=== PATIENT | female | born 1975 | race Caucasian/White ===

== ENCOUNTER 2018-05-27 14:11 | Emergency (ER) | payer OTHER ==
[2018-05-27] MEDS ORDERED: ONDANSETRON 4 MG/2 ML VIAL ONE (15:06)
[2018-05-27] MEDS ORDERED: NA CHLORIDE 0.9% 1,000 ML ONE (15:07)
[2018-05-27 15:16] LABS: Absolute Lymphocytes (CBC) 2.5 K/uL (0.7-4.9); Absolute Monocytes 0.8 K/uL (0.1-1.3); Absolute Neutrophil 11.4 K/uL (1.8-8.0); Basophils % 0.7 % (0-1.3); Eosinophils % 0.7 % (0-4.4); Hematocrit 43.3 % (36.0-45.0); Lymphocytes % 16.8 % (15.3-44.8); Monocytes % 5.1 % (3.3-12.3); RBC Red Blood Cell Count 4.84 M/uL (3.86-4.86)
[2018-05-27] MEDS ORDERED: KETOROLAC 30 MG/ML INJ ONE (15:18)
[2018-05-27 15:42] LABS: Bilirubin Direct 0.1 mg/dL (0-0.2); Bilirubin Total 0.4 mg/dL (0.2-1.0); Potassium 4.1 mmol/L (3.5-5.1); Protein, Total 8.3 g/dL (6.4-8.2)
[2018-05-27 16:32] LABS: Urine Bacteria 20-50 /HPF (<20); Urine Culture Reflex Order REFLEXED; Urine Mucus 3+ /HPF (NONE SEEN); Urine RBC 20-50 /HPF (NONE SEEN)
--- NOTE | 2018-05-27 16:43 | RAD REPORT ---
EXAM DESCRIPTION: CT - Stone Protocol - 05/27/2018 4:18 pm CLINICAL HISTORY: Right-sided abdominal pain and flank pain COMPARISON: None. TECHNIQUE: Axial 5 mm thick images were obtained without oral or IV contrast. The [id number] span s the entirety of the system including uppermost abdomen and lung bases. All CT scans are performed using dose optimization technique as appropriate and may include automated exposure control or mA/KV adjustment according to patient size. FINDINGS: Mild to moderate right-sided hydronephrosis of the pelvis and calices noted secondary to a 6 mm proximal ureter calculus. On a KUB projection this is right side L3-4 disc level. No other obst ructing or nonobstructing calculi on the right. No left-sided hydronephrosis. No suspicious renal mas ses. Isodense masses and pyelonephritis are not excluded on a stone protocol CT scan. Urinary bladder is fully contracted. No bladder calculus. Uterus is absent. Ovaries are absent or atrophic. No adnex al mass. No significant adrenal finding. Imaged portions of the liver, spleen and pancreas show no suspicious findings on non-contrast imaging . Cholecystectomy clips are present. No biliary tree dilatation. No suspicious bowel findings. Cecum is low lying along the pelvis for. No appendicitis findings. No hernia, mass or bulky lymphadenopathy noted. No free air, free fluid or inflammatory stranding. No significant bony abnormality. IMPRESSION: Mild to moderate hydronephrosis of the pelvis and calices on the right secondary to a 6 mm proximal right ureter calculus. On KUB projection the stone is at the level of the L3-4 disc. Isodense masses and pyelonephritis are not excluded on stone protocol technique.
[2018-05-27 16:52] LABS: Urine Blood 2+ (NEG); Urine Glucose NEGATIVE (NEG); Urine Specific Gravity >1.030 (1.005-1.030)
[2018-05-27 16:53] LABS: Urine Protein 2+ (NEG); Urine pH 5.5 (5.0-7.0)
[2018-05-27] MEDS ORDERED: CIPROFLOXACIN HCL 500 MG TAB ONE (16:59)
--- NOTE | 2018-05-27 16:59 | EDPHYS ---
Physician Documentation [facility] Name: Samira Freeman Age: 43 yrs Sex: Female : 1975 Arrival Date: 05/27/2018 Time: 14:12 Bed 30 Private MD: ED Physician Wili Camacho HPI: 05/27 15:30 This 43 yrs old Female presents to ER via Ambulatory with complaints of Back pm1 Pain, Vomiting. 15:30 The patient presents with pain that is acute, with no known mechanism of injury. The pm1 symptoms are located in the right flank. Onset: The symptoms/episode began/occurred today. The pain radiates to the right groin. Associated signs and symptoms: Pertinent positives: nausea, vomiting, Pertinent negatives: chest pain, constipation, dysuria, fever, headache, numbness, tingling. The problem was sustained from unknown cause. Modifying factors: The patient symptoms are alleviated by nothing, the patient symptoms are aggravated by nothing. Severity of symptoms: in the emergency department the symptoms are actually worse. The patient has not experienced similar symptoms in the past. The patient has not recently seen a physician. Waxing and waning pain to right flank. 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 - Social history:: Smoking status: Patient/guardian denies using tobacco. - Ebola Screening: : No symptoms or risks identified at this time. ROS: 15:30 Constitutional: Negative for fever, chills, and weight loss, Eyes: Negative for injury, pm1 pain, redness, and discharge, ENT: Negative for injury, pain, and discharge, Neck: Negative for injury, pain, and swelling, Cardiovascular: Negative for chest pain, palpitations, and edema, Respiratory: Negative for shortness of breath, cough, wheezing, and pleuritic chest pain. 15:30 : Negative for injury, bleeding, discharge, and swelling, MS/Extremity: Negative for injury and deformity, Skin: Negative for injury, rash, and discoloration, Neuro: Negative for headache, weakness, numbness, tingling, and seizure. 15:30 Abdomen/GI: Positive for abdominal pain, nausea and vomiting, of the Right groin area, Negative for diarrhea. 15:30 Back: Positive for flank pain, on the right. Exam: 15:30 Constitutional: This is a well developed, well nourished patient who is awake, alert, pm1 and in no acute distress. Head/Face: Normocephalic, atraumatic. Eyes: Pupils equal round and reactive to light, extra-ocular motions intact. Lids and lashes normal. Conjunctiva and sclera are non-icteric and not injected. Cornea within normal limits. Periorbital areas with no swelling, redness, or edema. ENT: Nares patent. No nasal discharge, no septal abnormalities noted. Tympanic membranes are normal and external auditory canals are clear. Oropharynx with no redness, swelling, or masses, exudates, or evidence of obstruction, uvula midline. Mucous membranes moist. Neck: Trachea midline, no thyromegaly or masses palpated, and no cervical lymphadenopathy. Supple, full range of motion without nuchal rigidity, or vertebral point tenderness. No Meningismus. Chest/axilla: Normal chest wall appearance and motion. Nontender with no deformity. No lesions are appreciated. Cardiovascular: Regular rate and rhythm with a normal S1 and S2. No gallops, murmurs, or rubs. Normal PMI, no JVD. No pulse deficits. Respiratory: Lungs have equal breath sounds bilaterally, clear to auscultation and percussion. No rales, rhonchi or wheezes noted. No increased work of breathing, no retractions or nasal flaring. Abdomen/GI: Soft, non-tender, with normal bowel sounds. No distension or tympany. No guarding or rebound. No evidence of tenderness throughout. 15:30 Skin: Warm, dry with normal turgor. Normal color with no rashes, no lesions, and no evidence of cellulitis. MS/ Extremity: Pulses equal, no cyanosis. Neurovascular intact. Full, normal range of motion. 15:30 Back: normal spinal alignment noted, CVA tenderness, that is mild, is noted on the right, vertebral tenderness, is not appreciated. 15:30 Neuro: Orientation: is normal, Motor: is normal, moves all fours, Sensation: is normal, no obvious gross deficits. Vital Signs: 14:50 BP 95 / 81; Pulse 99; Resp 16; Temp 97.4; Pulse Ox 98% ; Pain 10/10; hb 16:30 BP 120 / 79; Pulse 83; Resp 18; Pulse Ox 100% on R/A; rv 17:21 BP 116 / 72; Pulse 82; Resp 18; Pulse Ox 100% on R/A; rv MDM: 14:58 Patient medically screened. pm1 16:42 Data reviewed: vital signs. Data interpreted: Pulse oximetry: on room air is 100 %. pm1 Interpretation: normal. 16:56 Counseling: I had a detailed discussion with the patient and/or guardian regarding: the pm1 historical points, exam findings, and any diagnostic results supporting the discharge/admit diagnosis, lab results, radiology results, the need for outpatient follow up, for definitive care, a urologist, to return to the emergency department if symptoms worsen or persist or if there are any questions or concerns that arise at home. 05/27 14:59 Order name: Hepatic Function; Complete Time: 15:59 pm1 05/27 14:59 Order name: Basic Metabolic Panel; Complete Time: 15:59 pm1 05/27 14:59 Order name: CBC with Diff pm1 05/27 14:59 Order name: Lipase; Complete Time: 15:59 pm1 05/27 15:59 Order name: Urine Microscopic Only; Complete Time: 16:38 pm1 05/27 16:02 Order name: Urine Dipstick--Ancillary (enter results); Complete Time: 17:01 em1 05/27 14:59 Order name: CT Stone Protocol; Complete Time: 16:44 pm1 05/27 16:34 Order name: Urine Culture [facility] 05/27 14:59 Order name: IV Saline Lock; Complete Time: 15:04 pm1 05/27 14:59 Order name: Labs collected and sent; Complete Time: 15:05 pm1 05/27 14:59 Order name: Urine Dipstick-Ancillary (obtain specimen); Complete Time: 16:01 pm1 Administered Medications: 15:04 Drug: Zofran 4 mg Route: IVP; Site: left forearm; ss 17:02 Follow up: Response: Marked relief of symptoms rv 15:05 Drug: NS 0.9% 1000 ml Route: IV; Rate: 1000 ml; Site: left forearm; ss 17:02 Follow up: IV Status: Completed infusion rv 15:11 Drug: TORadol 30 mg Route: IVP; Site: right antecubital; ss 17:02 Follow up: Response: Pain is decreased rv 16:50 Drug: Ciprofloxacin 500 mg Route: PO; rv 17:22 Follow up: Response: No adverse reaction rv 16:50 Drug: fentaNYL (PF) 25 mcg Route: IVP; Site: right antecubital; rv 17:22 Follow up: Response: Marked relief of symptoms; Pain is decreased rv 16:50 Drug: Flomax 0.4 mg Route: PO; rv 17:22 Follow up: Response: No adverse reaction rv Disposition: 18:36 Co-signature as Attending Physician, Wili Camacho MD. rn Disposition: 05/27/18 16:58 Discharged to Home. Impression: Calculus of ureter - right. - Condition is Stable. - Discharge Instructions: Kidney Stones, Dietary Guidelines to Help Prevent Kidney Stones. - Prescriptions for Tylenol- Codeine #3 300-30 mg Oral Tablet - take 2 tablets by ORAL route every 6 hours As needed; 20 tablet. Zofran 4 mg Oral Tablet - take 1 tablet by ORAL route every 12 hours As needed; 20 tablet. Flomax 0.4 mg Oral Capsule, Sust. Release 24 hr - take 1 capsule by ORAL route once daily 1/2 hour following the same meal each day; 10 capsule. Cipro 500 mg Oral Tablet - take 1 tablet by ORAL route every 12 hours for 7 days; 14 tablet. - Medication Reconciliation Form, Thank You Letter, Antibiotic Education, Prescription Opioid Use, Work release form form. - Follow up: Emergency Department; When: As needed; Reason: Worsening of condition. Follow up: Shane Villarreal MD; When: 2 - 3 days; Reason: Recheck today's complaints, Continuance of care, Re-evaluation by your physician. - Problem is new. - Symptoms have improved. Signatures: Dispatcher [employer] EDMS Wili Camacho MD MD rn Smirch, Shelby, RN RN ss Edgardo Koo, BACK SHOE WORKER BACK SHOE WORKER pm1 Margaret Sneed RN RN [place] RN RN rv Corrections: (The following items were deleted from the chart) 17:21 16:58 05/27/2018 16:58 Discharged to Home. Impression: Calculus of ureter - right. hb Condition is Stable. Forms are Medication Reconciliation Form, Thank You Letter, Antibiotic Education, Prescription Opioid Use. Follow up: Emergency Department; When: As needed; Reason: Worsening of condition. Follow up: Shane Villarreal; When: 2 - 3 days; Reason: Recheck today's complaints, Continuance of care, Re-evaluation by your physician. Problem is new. Symptoms have improved. pm1
--- NOTE | 2018-05-27 16:59 | ER ---
Nurse's Notes [facility] Name: Samira Freeman Age: 43 yrs Sex: Female : 1975 Arrival Date: 05/27/2018 Time: 14:12 Bed 30 Private MD: Diagnosis: Calculus of ureter-right Presentation: 05/27 14:39 Onset of symptoms was May 25, 2018. Risk Assessment: Do you want to hurt yourself hb or someone else? Patient reports no desire to harm self or others. 14:40 Transition of care: patient was not received from another setting of care. Care prior hb to arrival: None. 14:40 Method Of Arrival: Ambulatory hb 14:40 Acuity: GALINA 3 hb 14:40 Presenting complaint: Right sided abdominal pain and N/V since 1030 today. hb 16:43 Initial Sepsis Screen: Does the patient meet any 2 criteria? No. Patient's initial rv sepsis screen is negative. Does the patient have a suspected source of infection? No. Patient's initial sepsis screen is negative. 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 - Social history:: Smoking status: Patient/guardian denies using tobacco. - Ebola Screening: : No symptoms or risks identified at this time. Screenin:43 Abuse screen: Denies threats or abuse. Denies injuries from another. Nutritional rv screening: No deficits noted. Tuberculosis screening: No symptoms or risk factors identified. Fall Risk None identified. Assessment: 16:42 General: Appears in no apparent distress. uncomfortable, Behavior is calm, cooperative. rv Pain: Complains of pain in abdomen. Neuro: Level of Consciousness is awake, alert, obeys commands, Oriented to person, place, time, situation. Cardiovascular: Capillary refill < 3 seconds. Respiratory: Airway is patent. : No signs and/or symptoms were reported regarding the genitourinary system. EENT: No signs and/or symptoms were reported regarding the EENT system. Derm: Skin is intact. Musculoskeletal: No signs and/or symptoms reported regarding the musculoskeletal system. 16:43 GI: Abdomen is round Pt is actively vomiting bile. rv Vital Signs: 14:50 BP 95 / 81; Pulse 99; Resp 16; Temp 97.4; Pulse Ox 98% ; Pain 10/10; hb 16:30 BP 120 / 79; Pulse 83; Resp 18; Pulse Ox 100% on R/A; rv 17:21 BP 116 / 72; Pulse 82; Resp 18; Pulse Ox 100% on R/A; rv ED Course: 14:12 Patient arrived in ED. as 14:40 Arm band placed on. hb 14:44 Triage completed. hb 14:54 Edgardo Koo NP is PHCP. pm1 14:54 Wili Camacho MD is Attending Physician. pm1 15:04 Inserted saline lock: 22 gauge in left forearm, using aseptic technique. Blood ss collected. 15:15 Radiology exam delayed due to test not completed at this time. kw1 16:19 CT completed. Patient tolerated procedure well. Patient moved back from CT. kw1 16:20 CT Stone Protocol In Process Unspecified. EDMS 16:43 Patient has correct armband on for positive identification. Placed in gown. Bed in low rv position. Call light in reach. Side rails up X 1. Adult w/ patient. Pulse ox on. NIBP on. 16:57 Shane Villarreal MD is Referral Physician. pm1 17:21 No provider procedures requiring assistance completed. IV discontinued, bleeding rv controlled, No redness/swelling at site. Pressure dressing applied. Administered Medications: 15:04 Drug: Zofran 4 mg Route: IVP; Site: left forearm; ss 17:02 Follow up: Response: Marked relief of symptoms rv 15:05 Drug: NS 0.9% 1000 ml Route: IV; Rate: 1000 ml; Site: left forearm; ss 17:02 Follow up: IV Status: Completed infusion rv 15:11 Drug: TORadol 30 mg Route: IVP; Site: right antecubital; ss 17:02 Follow up: Response: Pain is decreased rv 16:50 Drug: Ciprofloxacin 500 mg Route: PO; rv 17:22 Follow up: Response: No adverse reaction rv 16:50 Drug: fentaNYL (PF) 25 mcg Route: IVP; Site: right antecubital; rv 17:22 Follow up: Response: Marked relief of symptoms; Pain is decreased rv 16:50 Drug: Flomax 0.4 mg Route: PO; rv 17:22 Follow up: Response: No adverse reaction rv Outcome: 16:58 Discharge ordered by . pm1 17:21 Patient left the ED. hb 17:23 Discharged to home ambulatory. rv 17:23 Condition: good 17:23 Discharge instructions given to patient, family, Instructed on discharge instructions, follow up and referral plans. medication usage, Demonstrated understanding of instructions, follow-up care, medications, Prescriptions given X 4. Signatures: Dispatcher [employer] EDMS Macie Welch Shelby, RN RN Edgardo Koo NP TALKBACK HOST pm1 Margaret Sneed RN RN Nandini Herrera kw1 [place] RN RN rv Corrections: (The following items were deleted from the chart) 14:40 14:38 BP 106 / 63; Pulse 123bpm; Resp 16bpm; Pulse Ox 99% RA; Temp 99.8F; Pain 4/10; hb hb 14:47 14:38 BP 106 / 63; Pulse 137bpm; Resp 16bpm; Pulse Ox 99% RA; Temp 99.8F; Pain 4/10; hb hb 14:47 14:40 Presenting complaint: Patient states: Sinus congestion, chills, sore throat and hb fever x 3 days. Passed out in shower 1 hr PT. Father reports finding pt semiconscious on the shower floor, vomit x 2. Denies injury. hb 14:50 14:39 Risk Assessment: Do you want to hurt yourself or someone else? Patient reports no hb desire to harm self or others. hb 14:50 14:40 Presenting complaint: Patient states: Sinus congestion, chills, sore throat and hb fever x 3 days. Passed out in shower 1 hr PT. Father reports finding pt semiconscious on the shower floor, vomit x 2. Denies injury. hb 16:43 16:42 GI: No signs and/or symptoms were reported involving the gastrointestinal system. rv rv
[2018-05-27] MEDS ORDERED: FENTANYL CITR 100 MCG/2 ML ONE (17:00)
[2018-05-27] MEDS ORDERED: TAMSULOSIN 0.4 MG SR CAP ONE (17:00)
== END 2018-05-27 17:21 | disposition home or self-care (01) ==
LOC: ER 14:11
DX: N20.1 Calculus of ureter (principal)
CPT/HCPCS: 36415; 74176; 76377; 80048; 80076; 81003; 81015; 83690; 85025; 87086; 87088; 99284; J2405; J3010; J7030

== ENCOUNTER 2018-05-29 14:37 | Observation (INO) | payer OTHER ==
[2018-05-29 15:37] LABS: Absolute Lymphocytes (CBC) 2.4 K/uL (0.7-4.9); Absolute Monocytes 1.3 K/uL (0.1-1.3); Absolute Neutrophil 13.9 K/uL (1.8-8.0); Basophils % 0.6 % (0-1.3); Eosinophils % 0.3 % (0-4.4); Hematocrit 37.7 % (36.0-45.0); Lymphocytes % 13.5 % (15.3-44.8); MPV 8.9 fL (7.6-11.3); Monocytes % 7.2 % (3.3-12.3); RBC Red Blood Cell Count 4.26 M/uL (3.86-4.86)
--- NOTE | 2018-05-29 15:39 | RAD REPORT ---
EXAM DESCRIPTION: CT - Stone Protocol - 05/29/2018 3:08 pm CLINICAL HISTORY: Flank pain, kidney stone COMPARISON: May 27, 2018 TECHNIQUE: Axial 5 mm thick images were obtained without oral or IV contrast. The [id number]-aqim span s the entirety of the system partially obscuring uppermost abdomen and lung bases. All CT scans are performed using dose optimization technique as appropriate and may include automated exposure control or mA/KV adjustment according to patient size. FINDINGS: Moderate hydronephrosis of the right collecting system is fractionally worse than the Febr uary 10 study. The obstructing right ureteral calculus at 6 mm in size has migrated distally 2.5 cm. On a KUB projection the stone is at the level of the L4-5 disc space. Isodense masses and pyelonephri tis are not excluded. Renal edema and perinephric stranding have increased. Urinary bladder is contra cted. Remainder the study is stable. IMPRESSION: Approximately 6 millimeter right ureteral calculus is present causing moderate hydroneph rosis. Hydronephrosis is fractionally increased from May 27. Renal edema and perinephric strandi ng have increased. On a KUB projection, the stone is at the level of the L4-5 disc space. This is the distal migration o f approximately 2.5 cm since the comparison study. Isodense masses and pyelonephritis are not excluded on stone protocol technique.
[2018-05-29] MEDS ORDERED: TAMSULOSIN 0.4 MG SR CAP ONE (15:42)
[2018-05-29] MEDS ORDERED: KETOROLAC 30 MG/ML INJ ONE (15:42)
[2018-05-29] MEDS ORDERED: NA CHLORIDE 0.9% 1,000 ML ONE (15:42)
[2018-05-29 15:57] LABS: Potassium 3.8 mmol/L (3.5-5.1)
[2018-05-29 16:05] LABS: Urine Amorphous Sediment 2+ /HPF (NONE SEEN); Urine Bacteria >50 /HPF (<20); Urine Culture Reflex Order REFLEXED; Urine RBC 20-50 /HPF (NONE SEEN); Urine Trichomonas PRESENT (NONE SEEN)
[2018-05-29 16:37] LABS: Urine Blood 2+ (NEG); Urine Glucose NEGATIVE (NEG); Urine Protein 1+ (NEG); Urine pH 5.5 (5.0-7.0)
[2018-05-29] MEDS ORDERED: CEFTRIAXONE/SWI 1gm 1 GM/10 ML SYR ONE (17:02)
[2018-05-29] MEDS ORDERED: MEPERIDINE HCL 50 MG/ML AMP ONE (17:10)
--- NOTE | 2018-05-29 17:11 | ER ---
Nurse's Notes [facility] Name: Samira Freeman Age: 43 yrs Sex: Female : 1975 Arrival Date: 05/29/2018 Time: 14:47 Bed 27 Private MD: Diagnosis: Hydronephrosis with renal and ureteral calculous obstruction;Urinary tract infection, site not specified Presentation: 05/29 14:53 Presenting complaint: EMS states: pt here for kidney stone, was seen here Monday for tl3 same dx with 6 mm stone, but unable to fill RX or get to see primary care. Transition of care: patient was not received from another setting of care. Onset of symptoms was May 27, 2018. Risk Assessment: Do you want to hurt yourself or someone else? Patient reports no desire to harm self or others. Initial Sepsis Screen: Does the patient meet any 2 criteria? No. Patient's initial sepsis screen is negative. Does the patient have a suspected source of infection? No. Patient's initial sepsis screen is negative. Care prior to arrival: None. 14:53 Method Of Arrival: EMS: [facility] tl3 14:53 Acuity: GALINA 3 tl3 Triage Assessment: 14:56 General: Appears distressed, uncomfortable, well groomed, well developed, well tl3 nourished, Behavior is cooperative, appropriate for age, anxious. Pain: Complains of pain in posterior aspect of right lateral abdomen and anterior aspect of right lateral abdomen Pain currently is 10 out of 10 on a pain scale. EENT: No signs and/or symptoms were reported regarding the EENT system. Neuro: Level of Consciousness is awake, alert, obeys commands, Oriented to person, place, time, situation, Appropriate for age. Cardiovascular: Patient's skin is warm and dry. Respiratory: Airway is patent Respiratory effort is even, unlabored, Respiratory pattern is regular, symmetrical. GI: No signs and/or symptoms were reported involving the gastrointestinal system. : Reports kidney stone. 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 - Social history:: Smoking status: Patient uses tobacco products, smokes one pack cigarettes per day. - Ebola Screening: : No symptoms or risks identified at this time. - Family history:: not pertinent. - Hospitalizations: : No recent hospitalization is reported. Screenin:00 Abuse screen: Denies threats or abuse. Nutritional screening: No deficits noted. tl3 Tuberculosis screening: No symptoms or risk factors identified. Fall Risk None identified. Assessment: 16:10 Reassessment: No changes from previously documented assessment. Patient and/or family tl3 updated on plan of care and expected duration. Pain level reassessed. Patient is alert, oriented x 3, equal unlabored respirations, skin warm/dry/pink. General: Appears uncomfortable, Behavior is calm, cooperative, appropriate for age. Pain: Complains of pain in abdomen and anterior aspect of right lateral abdomen and posterior aspect of right lateral abdomen. Neuro: Level of Consciousness is awake, alert, obeys commands. Cardiovascular: Patient's skin is warm and dry. Respiratory: Airway is patent Respiratory effort is even, unlabored, Respiratory pattern is regular, symmetrical. GI: No signs and/or symptoms were reported involving the gastrointestinal system. : Urine is clear. 18:00 Reassessment: Patient appears in no apparent distress at this time. No changes from tl3 previously documented assessment. Patient and/or family updated on plan of care and expected duration. Pain level reassessed. Patient is alert, oriented x 3, equal unlabored respirations, skin warm/dry/pink. attempted to call report, transferred to nurse phone-no answer, recalled desk three times with no answer. 19:17 Reassessment: Patient appears in no apparent distress at this time. No changes from tl3 previously documented assessment. Patient and/or family updated on plan of care and expected duration. Pain level reassessed. Patient is alert, oriented x 3, equal unlabored respirations, skin warm/dry/pink. awaiting transfer to room. 19:30 Reassessment: report called to Simona MONTEJO on the floor. tl3 Vital Signs: 14:56 BP 119 / 68; Pulse 81; Resp 18; Temp 98.6(O); Pulse Ox 95% on R/A; tl3 16:10 BP 130 / 51; Pulse 59; Resp 18; Pulse Ox 99% on R/A; tl3 18:00 BP 132 / 73; Pulse 73; Resp 18; Pulse Ox 98% on R/A; tl3 19:25 BP 109 / 78; Pulse 78; Pulse Ox 100% ; tl3 ED Course: 14:47 Patient arrived in ED. em1 14:51 Wiil Camacho MD is Attending Physician. rn 14:53 Edith Booker, NIKIA is Primary Nurse. tl3 14:55 Triage completed. tl3 14:56 Arm band placed on right wrist. tl3 15:[address] vr 15:05 CT completed. Patient tolerated procedure well. Patient moved back from CT. nj 15:09 CT Stone Protocol In Process Unspecified. EDMS 15:30 Initial lab(s) drawn, by ED staff, sent to lab. Inserted saline lock: 20 gauge in right tl3 forearm, using aseptic technique. Blood collected. 16:37 Urine Culture Sent. tl3 17:10 Bhupendra Logan MD is Hospitalizing Provider. rn 18:00 Patient has correct armband on for positive identification. Bed in low position. Call tl3 light in reach. Side rails up X2. Adult w/ patient. Pulse ox on. NIBP on. 18:00 No provider procedures requiring assistance completed. tl3 19:30 Patient admitted, IV remains in place. tl3 Administered Medications: 15:40 Drug: NS 0.9% 1000 ml Route: IV; Rate: 1000 ml; Site: right forearm; Delivery: Primary tl3 tubing; 17:00 Follow up: IV Status: Completed infusion; IV Intake: 1000ml tl3 15:41 Drug: Flomax 0.4 mg Route: PO; tl3 19:14 Follow up: Response: No adverse reaction tl3 15:41 Drug: TORadol 30 mg Route: IVP; Infused Over: 1 mins; Site: right forearm; tl3 19:14 Follow up: Response: No adverse reaction tl3 16:58 Drug: Rocephin - (cefTRIAXone) 1 grams Route: IVPB; Infused Over: 5 mins; Site: right tl3 forearm; Delivery: Primary tubing; 17:05 Follow up: IV Status: Completed infusion; IV Intake: 20ml tl3 17:04 Drug: Demerol 50 mg Route: IVP; Infused Over: 2 mins; Site: right forearm; tl3 19:13 Follow up: Response: Marked relief of symptoms; Pain is decreased tl3 Intake: 17:00 IV: 1000ml; Total: 1000ml. tl3 17:05 IV: 20ml; Total: 1020ml. tl3 Outcome: 17:11 Decision to Hospitalize by Provider. rn 19:30 Admitted to Med/surg accompanied by tech, via wheelchair, with chart, Report called to tl3 NIKIA Jarvis 19:30 Condition: stable 19:30 Instructed on the need for admit, Demonstrated understanding of instructions. 19:39 Patient left the ED. tl3 Signatures: Dispatcher [employer] EDMS Wili Camacho MD MD rn Martinez, Jasmine Foster Nathan nj Lowrey, Tammy, RN RN tl3 Corrections: (The following items were deleted from the chart) 19:17 18:00 Reassessment: Patient appears in no apparent distress at this time. No changes tl3 from previously documented assessment. Patient and/or family updated on plan of care and expected duration. Pain level reassessed. Patient is alert, oriented x 3, equal unlabored respirations, skin warm/dry/pink. awaiting transfer to room tl3
--- NOTE | 2018-05-29 17:12 | EDPHYS ---
Physician Documentation [facility] Name: Samira Freeman Age: 43 yrs Sex: Female : 1975 Arrival Date: 05/29/2018 Time: 14:47 Bed 27 Private MD: ED Physician Wili Camacho HPI: 05/29 15:03 This 43 yrs old Female presents to ER via EMS with complaints of right abd rn pain. 15:03 The patient presents with abdominal pain right lower quadrant. Onset: The rn symptoms/episode began/occurred 3 day(s) ago. The symptoms do not radiate. Associated signs and symptoms: Pertinent positives: dysuria, nausea, Pertinent negatives: fever. The symptoms are described as crampy, intermittent, sharp. Modifying factors: The symptoms are alleviated by nothing, the symptoms are aggravated by nothing. Severity of pain: At its worst the pain was moderate in the emergency department the pain has improved. The patient has experienced a previous episode. The patient has been recently seen at the [facility] Emergency Department. Reports seen here 3 days ago, diagnosed with kidney stone, sent home when felt better, returns because doesn't have money to fill prescriptions and still having pain, pain has moved to RLQ abd pain.. 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 - Social history:: Smoking status: Patient uses tobacco products, smokes one pack cigarettes per day. - Ebola Screening: : No symptoms or risks identified at this time. - Family history:: not pertinent. - Hospitalizations: : No recent hospitalization is reported. ROS: 15:03 Constitutional: Negative for fever, chills, and weight loss, Eyes: Negative for injury, rn pain, redness, and discharge, Neck: Negative for injury, pain, and swelling, Cardiovascular: Negative for chest pain, palpitations, and edema, Respiratory: Negative for shortness of breath, cough, wheezing, and pleuritic chest pain, Abdomen/GI: Negative for vomiting, diarrhea, and constipation, : Negative for injury, bleeding, discharge, and swelling, MS/Extremity: Negative for injury and deformity, Skin: Negative for injury, rash, and discoloration, Neuro: Negative for headache, weakness, numbness, tingling, and seizure. Exam: 15:03 Constitutional: This is a well developed, well nourished patient who is awake, alert, rn and in no acute distress. Head/Face: Normocephalic, atraumatic. Eyes: Pupils equal round and reactive to light, extra-ocular motions intact. Lids and lashes normal. Conjunctiva and sclera are non-icteric and not injected. Cornea within normal limits. Periorbital areas with no swelling, redness, or edema. ENT: MMM Cardiovascular: Regular rate and rhythm, No pulse deficits. Respiratory: Lungs have equal breath sounds bilaterally, clear to auscultation. No increased work of breathing, no retractions or nasal flaring. Abdomen/GI: soft, mild RLQ tenderness, no rebound Skin: Warm, dry with normal turgor. Normal color with no rashes, no lesions, and no evidence of cellulitis. MS/ Extremity: Pulses equal, no cyanosis. Neurovascular intact. Full, normal range of motion. Equal circumference. Neuro: Awake and alert, GCS 15, oriented to person, place, time, and situation. Cranial nerves II-XII grossly intact. Motor strength 5/5 in all extremities. Sensory grossly intact. Vital Signs: 14:56 BP 119 / 68; Pulse 81; Resp 18; Temp 98.6(O); Pulse Ox 95% on R/A; tl3 16:10 BP 130 / 51; Pulse 59; Resp 18; Pulse Ox 99% on R/A; tl3 18:00 BP 132 / 73; Pulse 73; Resp 18; Pulse Ox 98% on R/A; tl3 19:25 BP 109 / 78; Pulse 78; Pulse Ox 100% ; tl3 MDM: 14:51 Patient medically screened. rn 17:09 Differential diagnosis: Pyelonephritis, Ureterolithiasis, urinary tract infection. Data rn reviewed: vital signs, nurses notes, lab test result(s), radiologic studies, CT scan, and as a result, I will admit patient. Counseling: I had a detailed discussion with the patient and/or guardian regarding: the historical points, exam findings, and any diagnostic results supporting the discharge/admit diagnosis, lab results, radiology results, the need for further work-up and treatment in the hospital. Admission orders: after a detailed discussion of the patient's condition and case, the admit orders are written by me. ED course: Pt with ureterolithiasis that hasn't moved, + UTI, admitted to Dr. Logan, and will admit for Dr. Villarreal intervention and care. . 18:10 ED course: Consulted with Dr. Villarreal, requested NPO after midnight and will likely rn intervene in AM. . 05/29 14:58 Order name: CBC with Diff; Complete Time: 16:33 rn 05/29 14:58 Order name: Basic Metabolic Panel; Complete Time: 16:33 rn 05/29 14:58 Order name: Urine Microscopic Only; Complete Time: 16:33 rn 05/29 15:18 Order name: Urine Dipstick--Ancillary (enter results); Complete Time: 16:48 05/29 15:18 Order name: Urine --Ancillary (enter results); Complete Time: 16:48 05/29 16:10 Order name: Urine Culture [facility] 05/29 14:58 Order name: IV Start; Complete Time: 15:41 rn 05/29 14:58 Order name: CT Stone Protocol; Complete Time: 16:33 rn 05/29 17:11 Order name: CONS Physician Consult [facility] 05/29 14:58 Order name: Urine Test (obtain specimen); Complete Time: 15:42 rn 05/29 14:58 Order name: Urine Dipstick-Ancillary (obtain specimen); Complete Time: 15:42 rn Administered Medications: 15:40 Drug: NS 0.9% 1000 ml Route: IV; Rate: 1000 ml; Site: right forearm; Delivery: Primary tl3 tubing; 17:00 Follow up: IV Status: Completed infusion; IV Intake: 1000ml tl3 15:41 Drug: Flomax 0.4 mg Route: PO; tl3 19:14 Follow up: Response: No adverse reaction tl3 15:41 Drug: TORadol 30 mg Route: IVP; Infused Over: 1 mins; Site: right forearm; tl3 19:14 Follow up: Response: No adverse reaction tl3 16:58 Drug: Rocephin - (cefTRIAXone) 1 grams Route: IVPB; Infused Over: 5 mins; Site: right tl3 forearm; Delivery: Primary tubing; 17:05 Follow up: IV Status: Completed infusion; IV Intake: 20ml tl3 17:04 Drug: Demerol 50 mg Route: IVP; Infused Over: 2 mins; Site: right forearm; tl3 19:13 Follow up: Response: Marked relief of symptoms; Pain is decreased tl3 Disposition: 05/29/18 17:11 Hospitalization ordered by Bhupendra Logan for Inpatient Admission. Preliminary diagnosis are Hydronephrosis with renal and ureteral calculous obstruction, Urinary tract infection, site not specified. - Bed requested for Telemetry/MedSurg (Inpatient). - Status is Inpatient Admission. tl3 - Condition is Stable. - Problem is an ongoing problem. - Symptoms have improved. UTI on Admission? Yes Signatures: Dispatcher [employer] EDMS Wili Camacho MD MD rn Lowrey, Tammy, RN RN tl3 Melanie Duran Corrections: (The following items were deleted from the chart) 17:51 17:11 Hospitalization Ordered by Bhupendra Logan MD for Inpatient Admission. Preliminary eb diagnosis is Hydronephrosis with renal and ureteral calculous obstruction; Urinary tract infection, site not specified. Bed requested for Telemetry/MedSurg (Inpatient). Status is Inpatient Admission. Condition is Stable. Problem is an ongoing problem. Symptoms have improved. UTI on Admission? Yes. rn 19:39 17:51 05/29/2018 17:11 Hospitalization Ordered by Bhupendra Logan MD for Inpatient tl3 Admission. Preliminary diagnosis is Hydronephrosis with renal and ureteral calculous obstruction; Urinary tract infection, site not specified. Bed requested for Telemetry/MedSurg (Inpatient). Status is Inpatient Admission. Condition is Stable. Problem is an ongoing problem. Symptoms have improved. UTI on Admission? Yes. eb
--- NOTE | 2018-05-29 18:54 | P.HP ---
Patient History Date of Service: 05/29/18 History of Present Illness: Ms. Freeman is a 43 yr old female with no significant past medical history admitted for right groin/lower quadrant abdominal pain. She initially developed this sharp, lower quadrant pain 3 days agow hen she was at worse. This progressively worsened with nausea and vomiting so she went to the ED that day. In the ED, CT abdomen showed a 6 - mm stone in the right upper ureter. She was sent home with prescriptions to fill, but she did not fill the prescriptions yet due to financial reasons. She became worse yesterday, came back to the ER. Her pain was 10/10. She had nausea and vomiting, and right lower quadrant pain that seems to radiate up to the groin and then upwards toward the back. She said like an upside-down T. She denies any previous history of kidney stones. In the ED, she was given IVF and pain control. She was seen to have elevated WBC count. At the time of my exam, patient was alert oriented x3, in mild distress secondary to right lower quadrant pain but hemodynamically stable. Dr. Villarreal was consulted. Allergies morphine Allergy (Verified 05/29/18 19:30) Itching Home Medications: NK [No Home Meds] 05/29/18 - Family History Father -: Cancer Mother -: Diabetes, Stroke Review of Systems 10-point ROS is otherwise unremarkable Physical Examination - Physical Exam General: Alert, Mild distress, Moderate distress HEENT: Atraumatic, PERRLA, Mucous membr. moist/pink, EOMI, Sclerae nonicteric Neck: Supple, 2+ carotid pulse no bruit, No LAD, Without JVD or thyroid abnormality Respiratory: Clear to auscultation bilaterally, Normal air movement Cardiovascular: Regular rate/rhythm, Normal S1 S2 Gastrointestinal: Normal bowel sounds, No tenderness Musculoskeletal: Tenderness (Right flank tenderness) Integumentary: No rashes Neurological: Normal gait, Normal speech, Normal strength at 5/5 x4 extr, Normal tone, Normal affect Lymphatics: No axilla or inguinal lymphadenopathy - Studies Laboratory Data (last 24 hrs) 05/29/18 15:15: Sodium 144, Potassium 3.8, BUN 17, Creatinine 1.05, Glucose 106 05/29/18 15:15: WBC 17.7 H D, Hgb 12.8, Hct 37.7, Plt Count 331 Assessment and Plan - Problems (Diagnosis) (1) UTI (urinary tract infection) Current Visit: Yes Status: Acute (2) Right ureteral stone Current Visit: Yes Status: Acute - Plan This is a 43-year-old female with: Right ureteral stone Urinary tract infection Start IV Rocephin IV fluids, pain control Urology consulted, pending evaluation DVT prophylaxis: Hold GI prophylaxis: None Diet: NPO Disposition: Pending urological evaluation and symptomatic improvement. - Advance Directives Does patient have a Living Will: No Does patient have a Durable POA for Healthcare: No Time Spent Managing Pts Care (In Minutes): 55
[2018-05-29] MEDS ORDERED: MORPHINE 2 MG/ML SYR IV PRN (19:44)
[2018-05-29] MEDS ORDERED: ACETAMINOPHEN 500 MG TAB PO PRN (19:44)
[2018-05-29] MEDS: HYDROMORPHONE HCL 1 MG/ML INJ IV PRN (21:19)
[2018-05-29] MEDS: NA CHLORIDE 0.9% 1,000 ML IV SCH (21:19)
[2018-05-29] MEDS: ONDANSETRON 4 MG/2 ML VIAL IV PRN (22:30)
[2018-05-30] MEDS: HYDROMORPHONE HCL 1 MG/ML INJ IV PRN ×5 (01:34→22:26)
[2018-05-30] MEDS: ONDANSETRON 4 MG/2 ML VIAL IV PRN ×3 (05:42→18:17)
[2018-05-30] MEDS: NA CHLORIDE 0.9% 1,000 ML IV SCH ×3 (05:42→18:19)
[2018-05-30 06:05] LABS: Absolute Lymphocytes (CBC) 2.2 K/uL (0.7-4.9); Absolute Monocytes 1.5 K/uL (0.1-1.3); Basophils % 0.2 % (0-1.3); Eosinophils % 1.5 % (0-4.4); Hematocrit 34.6 % (36.0-45.0); Lymphocytes % 14.5 % (15.3-44.8); MPV 8.9 fL (7.6-11.3); Monocytes % 9.9 % (3.3-12.3); RBC Red Blood Cell Count 3.86 M/uL (3.86-4.86)
[2018-05-30 06:07] LABS: Albumin 3.2 g/dL (3.4-5.0); Bilirubin Total 0.4 mg/dL (0.2-1.0); Potassium 3.8 mmol/L (3.5-5.1); Protein, Total 6.9 g/dL (6.4-8.2)
[2018-05-30 06:16] LABS: Protime INR 1.18
[2018-05-30 06:45] LABS: Magnesium 1.8 mg/dL (1.8-2.4); Phosphorus 3.4 mg/dL (2.5-4.9)
[2018-05-30] MEDS ORDERED: MAGNESIUM SULFATE 1 gm IVPB 1 GM/100 ML BAG IV ONE (08:00)
[2018-05-30] MEDS ORDERED: INFLUENZA VACCINE (for 3y+) 0.5 ML DOSE IMVAC ONE (09:00)
[2018-05-30] MEDS ORDERED: KCL 20 MEQ/100 mL IVPB 20 MEQ/100 ML BAG IV SCH (09:00)
--- NOTE | 2018-05-30 11:12 | PREOPHP ---
Date of Admission: 05/29/2018 History: A pleasant 43-year-old lady. She works for [employer]. She was working 3 days ago when she developed sudden right lower quadrant pain. She thought it was due to her diet, but became worse with nausea and vomiting , so she was sent home. She went to the ER that day that showed she had a 6-mm stone in the right upper ureter. She was sent home with prescriptions to fill, but she did not fill the prescriptions yet due to financial reasons. She became worse yesterday, came back to the ER. Her pain was 10/10. She had nausea and vomiting, and right lower quadrant pain that seems to radiate up to the groin and then upwards toward the back. She said like an upside-down T. She denies any previous history of kidney stones. She is otherwise healthy. Past Medical History: None. Past Surgical History: Hysterectomy. Allergies: MORPHINE, CAUSES ITCHING. Social History: She smokes less than 1 pack per day. No drug use. Review of Systems: Ten-point review of systems otherwise negative and as per above. Physical Examination: Vital Signs: 98.6, 79, 16, 115/58, 96% sat. General Appearance: She is awake, alert, oriented x3. No acute distress, seems to be comfortable. HEENT: Atraumatic, normocephalic. Chest: Clear. Heart: Regular. S1, S2. Abdomen: Soft, nontender. Skin: No rashes. Extremities: Normal range of motion. Positive for right flank tenderness. Laboratory Data: Shows that she had an elevated white count when she came in, [id number], now it is 15,000 this morning. Her H and H are 11.7 and 34.6, platelet count 306. Coagulations totally normal. Chemistry shows sodium 144, potassium 3.8, chloride 109, carbon dioxide 27, BUN 17, creatinine 1.0, GFR 58, glucose 101, calcium 8.9, magnesium 1.8. LFTs otherwise normal. Urine showed pH 5.5, ketones 4+, blood 2+, nitrate negative, esterase 1+, rbc's 20 to 50, wbc's 5 to 10, bacteria greater than 50 present, Trichomonas positive. Urine culture showing 10,000 to 100,000 CFU, pending. Assessment: A 6-mm right upper ureter by L4-L5 area. Plan: Plan is to do a cysto stent placement, then bring her back later for ESWL if possible. Patient is coherent, non-coerced , given all the general information, alternatives and risks and wishes to proceed. JOAO/KAMRYN Voice ID: [id number] MTDD
[2018-05-30] MEDS: CEFTRIAXONE/SWI 1gm 1 GM/10 ML SYR IV SCH (12:04)
[2018-05-30] MEDS ORDERED: MIDAZOLAM HCL 2 MG/2 ML INJ ONE (12:53)
[2018-05-30] MEDS ORDERED: PROPOFOL 200 MG/20 ML VIAL IV ONE (12:53)
[2018-05-30] MEDS ORDERED: FENTANYL CITR 100 MCG/2 ML ONE (12:53)
[2018-05-30] MEDS ORDERED: LIDOCAINE 1% MPF 5 ML VIAL ONE (12:53)
[2018-05-30] MEDS ORDERED: Ringers Lactate 1,000 ML IV ONE (13:18)
[2018-05-30] MEDS ORDERED: ONDANSETRON 4 MG/2 ML VIAL ONE (13:40)
[2018-05-30] MEDS ORDERED: KETOROLAC 30 MG/ML INJ ONE (13:40)
[2018-05-30] MEDS: HYDROMORPHONE HCL 1 MG/ML INJ ONE ×3 (14:26→14:31)
--- NOTE | 2018-05-30 14:47 | P.PN ---
Subjective Date of Service: 05/30/18 Subjective: No C/O voiced Patient seen and examined at bedside. No family at bedside. Chart reviewed and case discussed with nursing staff. Review of Systems 10-point ROS is otherwise unremarkable Physical Examination - Vital Signs Temperature: 97.8 F Blood Pressure: 132/74 Pulse: 80 Respirations: 16 Pulse Ox (%): 97 - Physical Exam General: Alert, Oriented x3, Mild distress HEENT: Atraumatic, PERRLA, EOMI Neck: Supple, JVD not distended Respiratory: Clear to auscultation bilaterally, Normal air movement Cardiovascular: Regular rate/rhythm, Normal S1 S2 Gastrointestinal: Normal bowel sounds, No tenderness Musculoskeletal: Tenderness (Right flank tenderness) Integumentary: No rashes Neurological: Normal speech, Normal tone, Normal affect Lymphatics: No axilla or inguinal lymphadenopathy - Studies Laboratory Data (last 24 hrs) 05/29/18 15:15: Sodium 144, Potassium 3.8, BUN 17, Creatinine 1.05, Glucose 106 05/29/18 15:15: WBC 17.7 H D, Hgb 12.8, Hct 37.7, Plt Count 331 Assessment And Plan - Current Problems (Diagnosis) (1) UTI (urinary tract infection) Current Visit: Yes Status: Acute (2) Right ureteral stone Current Visit: Yes Status: Acute - Plan This is a 43-year-old female with: Right ureteral stone Urinary tract infection Continue IV Rocephin IV fluids, pain control Leukocytosis improving Urology consulted, pending cystoscopy/stent placement today DVT prophylaxis: Hold GI prophylaxis: None Diet: NPO Disposition: Pending cystoscopy/stent placement and symptomatic improvement.
--- NOTE | 2018-05-30 16:11 | RAD REPORT ---
EXAM DESCRIPTION: RAD - Urethrocystogrphy Retrograde - 05/30/2018 2:07 pm CLINICAL HISTORY: ICD N 20.0/N 20.1 FINDINGS: The right ureter was cannulated and contrast administered. The procedure was performed by Dr. Villarreal. Twenty-five fluoroscopic spot images obtained. Fluoroscopy time 1.1 minute. Subsequently a right ureteral stent was placed. Please refer Dr. Villarreal's report for additional findings.
[2018-05-31] MEDS: HYDROMORPHONE HCL 1 MG/ML INJ IV PRN ×2 (04:18→08:36)
[2018-05-31] MEDS: NA CHLORIDE 0.9% 1,000 ML IV SCH (04:19)
[2018-05-31 06:35] LABS: BUN Blood Urea Nitrogen 15 mg/dL (7-18); Bicarbonate 28 mmol/L (21-32); Glucose Level 100 mg/dL (74-106); Potassium 3.9 mmol/L (3.5-5.1); Sodium Level 146 mmol/L (136-145)
[2018-05-31] MEDS: CEFTRIAXONE/SWI 1gm 1 GM/10 ML SYR IV SCH (08:36)
[2018-05-31] MEDS ORDERED: POTASSIUM CL SA 10 MEQ TAB PO ONE (09:00)
--- NOTE | 2018-05-31 18:00 | P.SSS ---
Patient History Date of Service: 05/31/18 Reason for admission: Right lower quadrant pain History of Present Illness: Ms. Freeman is a 43 yr old female with no significant past medical history admitted for right groin/lower quadrant abdominal pain. She initially developed this sharp, lower quadrant pain 3 days agow hen she was at worse. This progressively worsened with nausea and vomiting so she went to the ED that day. In the ED, CT abdomen showed a 6 - mm stone in the right upper ureter. She was sent home with prescriptions to fill, but she did not fill the prescriptions yet due to financial reasons. She became worse yesterday, came back to the ER. Her pain was 10/10. She had nausea and vomiting, and right lower quadrant pain that seems to radiate up to the groin and then upwards toward the back. She said like an upside-down T. She denies any previous history of kidney stones. In the ED, she was given IVF and pain control. She was seen to have elevated WBC count. At the time of my exam, patient was alert oriented x3, in mild distress secondary to right lower quadrant pain but hemodynamically stable. Dr. Villarreal was consulted. Allergies morphine Allergy (Verified 05/29/18 19:30) Itching Home Medications: Cephalexin [Keflex] 500 mg PO DAILY #7 cap 05/31/18 Metronidazole 2,000 mg PO ONCE #4 tablet 05/31/18 Oxybutynin Chloride [Oxybutynin Chloride ER] 10 mg PO DAILY #7 tab.er.24 Tramadol HCl [Ultram] 50 mg PO Q6HR PRN #10 tablet 05/31/18 - Past Medical/Surgical History Has patient received pneumonia vaccine in the past: No Diabetic: No -: hysterectomy -: cholecystectomy - Family History Father -: Cancer Mother -: Diabetes, Stroke - Social History Smoking Status: Current every day smoker Alcohol use: No CD- Drugs: No Caffeine use: Yes Place of Residence: Home Review of Systems 10-point ROS is otherwise unremarkable Physical Examination - Vital Signs Temperature: 98.2 F Blood Pressure: 123/74 Pulse: 79 Respirations: 18 Pulse Ox (%): 98 - Physical Exam General: Alert, In no apparent distress, Oriented x3 HEENT: Atraumatic, PERRLA, Mucous membr. moist/pink, EOMI, Sclerae nonicteric Neck: Supple, 2+ carotid pulse no bruit, No LAD, Without JVD or thyroid abnormality Respiratory: Clear to auscultation bilaterally, Normal air movement Cardiovascular: Regular rate/rhythm, Normal S1 S2 Gastrointestinal: Normal bowel sounds, No tenderness Musculoskeletal: No tenderness Integumentary: No rashes Neurological: Normal gait, Normal speech, Normal strength at 5/5 x4 extr, Normal tone, Normal affect Lymphatics: No axilla or inguinal lymphadenopathy - Studies Microbiology Data (last 24 hrs): 05/29/18 15:00 Clean Catch Urine Byars Count - Final BETWEEN 10,000 & 100,000 CFU/ML 05/29/18 15:00 Clean Catch Urine - Final - Diagnosis (Problem(s)) (1) UTI (urinary tract infection) Status: Acute (2) Right ureteral stone Status: Acute Treatment Summary: Patient was admitted for right lower quadrant pain, found to have a right ureteral stone along with a UTI. Urology was consulted. Patient underwent a cystoscopy, right ureter scoped, and lithotripsy for right kidney stone. Her pain improved. She was also found to have Trichomonas. She was discharged with prescription for Keflex, oxybutynin, and Flagyl for her Trichomonas. She remained otherwise hemodynamically stable throughout the stay. She will follow up with the primary care physician in 1 week. She will follow up with urology in 2 weeks - Disposition Discharge Date: 03/30/19 Disposition: ROUTINE DISCHARGE Condition: GOOD Consultations: Urology Patient Discharge Instructions: Please follow up with your primary care physician in 1 week. Please return to the Emergency room if symptoms worsen. Diet: Regular Activity: Ad garret Time Spent Managing Pts Care (In Minutes): 55
== END 2018-05-31 11:20 | disposition home or self-care (01) ==
LOC: ER 14:37 → ERHOLD 17:09 → 2ND 19:31
PROVIDERS: ADMIT Family Medicine; ATTEND Family Medicine
PROC: 0T768DZ Dilation of Right Ureter with Intraluminal Device, Via Natural or Artificial Opening Endoscopic (ICD-10-PCS; 2018-05-30)
PROC: 0TC68ZZ Extirpation of Matter from Right Ureter, Via Natural or Artificial Opening Endoscopic (ICD-10-PCS; 2018-05-30)
PROC: 0TF68ZZ Fragmentation in Right Ureter, Via Natural or Artificial Opening Endoscopic (ICD-10-PCS; principal; 2018-05-30 13:00)
DX: N20.1 Calculus of ureter (principal); N39.0 Urinary tract infection, site not specified; A59.8 Trichomoniasis of other sites; F17.210 Nicotine dependence, cigarettes, uncomplicated
CPT/HCPCS: 36415; 51610; 74176; 74450; 76377; 80048; 80053; 81003; 81015; 81025; 82360; 83735; 84100; 85025; 85610; 87086; 87088; 94760; 96361; 96374; 96375; 99285; G0378; J0696; J1170; J2175; J2250; J2405; J2704; J3010; J3475; J7030; Q9967

== ENCOUNTER 2022-04-17 18:25 | Inpatient (IN) | payer OTHER, SELFPAY ==
[2022-04-17] MEDS ORDERED: NA CHLORIDE 0.9% 1,000 ML ONE ×3 (19:11→22:47)
[2022-04-17] MEDS ORDERED: KETOROLAC 30 MG/ML INJ ONE (19:11)
[2022-04-17 19:45] LABS: Absolute Lymphocytes (CBC) 0.9 K/uL (0.7-4.9); Hematocrit 38.6 % (36.0-45.0); Lymphocytes % 5.4 % (15.3-44.8); MCV 86.1 fL (80-100); MPV 7.6 fL (7.6-11.3); RBC Red Blood Cell Count 4.49 M/uL (3.86-4.86)
[2022-04-17 19:49] LABS: Protime INR 1.05
[2022-04-17 19:56] LABS: Albumin 3.4 g/dL (3.4-5.0); Bilirubin Total 0.5 mg/dL (0.2-1.0); Potassium 3.8 mmol/L (3.5-5.1); Protein, Total 7.4 g/dL (6.4-8.2)
[2022-04-17] MEDS ORDERED: IBUPROFEN 400 MG TAB ONE (20:01)
[2022-04-17] MEDS ORDERED: IBUPROFEN 200 MG TAB PO ONE (20:01)
[2022-04-17 20:18] LABS: SARS-COV-2 RT PCR NEGATIVE (NEGATIVE)
[2022-04-17 20:19] LABS: Urine Blood Negative (Negative); Urine Glucose Negative (Negative); Urine Protein Trace (Negative); Urine Specific Gravity 1.015 (1.005-1.030); Urine pH 8.5 (5.0-7.0)
[2022-04-17 20:28] LABS: Urine Bacteria None Seen /HPF (<20); Urine Mucus Slight /HPF (None Seen); Urine RBC <5 /HPF (None Seen)
--- NOTE | 2022-04-17 20:39 | RAD REPORT ---
EXAM DESCRIPTION: RAD - Chest Single View - 04/17/2022 8:29 pm CLINICAL HISTORY: FEVER COMPARISON: None TECHNIQUE: AP portable chest image was obtained 04/17/2022 8:29 pm . FINDINGS: Lung volumes low. Body habitus and under penetrated technique further limit the examinatio n. No peripheral mass or consolidation. Lung markings are not outside of normal range. Heart and vasculature are normal. No measurable pleural effusion and no pneumothorax. No acute bony abnormality seen. No acute aortic findings suspected. IMPRESSION: No acute cardiopulmonary process.
[2022-04-17 22:17] LABS: Absolute Lymphocytes (CBC) 1.6 K/uL (0.7-4.9); Hematocrit 36.7 % (36.0-45.0); Lymphocytes % 8.6 % (15.3-44.8); MCV 86.3 fL (80-100); MPV 7.6 fL (7.6-11.3); RBC Red Blood Cell Count 4.25 M/uL (3.86-4.86)
--- NOTE | 2022-04-17 22:26 | RAD REPORT ---
EXAM DESCRIPTION: CT - Abdomen Pelvis W Contrast - 04/17/2022 10:09 pm CLINICAL HISTORY: fever, flank pain COMPARISON: Stone Protocol dated 05/29/2018; Chest Single View dated 04/17/2022 TECHNIQUE: Biphasic, helical CT imaging of the abdomen and pelvis was performed following 100 ml non -ionic IV contrast. Oral contrast: No. All CT scans are performed using dose optimization technique as appropriate and may include automated exposure control or mA/KV adjustment according to patient size. FINDINGS: Minimal ground-glass opacities are present in each lower lung field. This could be atelect asis or small infiltrate or mild alveolar edema. No cardiomegaly. The liver, spleen, and pancreas show no suspicious findings. Cholecystectomy clips are present. No bi liary tree dilatation. Symmetric renal function is seen with no hydronephrosis or suspicious renal mass. No pyelonephritis o r acute parenchymal process. No bladder abnormalities. No adrenal abnormalities. Uterus is absent. No variant or adnexal finding. Ovaries may be absent or atrophic. No dilated bowel loops or bowel wall thickening. No free air, free fluid or inflammatory stranding. No hernia, mass or bulky lymphadenopathy. No suspicious bony findings. IMPRESSION: Contrast enhanced CT abdomen and pelvis showing no significant or suspicious finding. Patchy alveolar opacification which could be edema, infiltrate or atelectasis.
--- NOTE | 2022-04-17 22:30 | EDPHYS ---
Physician Documentation [facility] Name: Samira Freeman Age: 47 yrs Sex: Female : 1975 Arrival Date: 04/17/2022 Time: 18:38 Bed 18 Private MD: ED Physician Wili Camacho HPI: 04/17 19:04 This 47 yrs old Female presents to ER via EMS with complaints of Nausea/Vomiting. 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 - Social history:: Smoking status: Reported history of juuling and/or vaping. Patient/guardian denies using alcohol. ROS: 19:00 Eyes: Negative for injury, pain, redness, and discharge, ENT: Negative for injury, snw pain, and discharge, Neck: Negative for injury, pain, and swelling, Cardiovascular: Negative for chest pain, palpitations, and edema. 19:00 Respiratory: Negative for shortness of breath, cough, wheezing, and pleuritic chest pain, Back: Negative for injury and pain, : Negative for injury, bleeding, discharge, and swelling, MS/Extremity: Negative for injury and deformity, Skin: Negative for injury, rash, and discoloration, Neuro: Negative for headache, weakness, numbness, tingling, and seizure. 19:00 Constitutional: Positive for chills, fever, malaise. 19:00 Abdomen/GI: Positive for nausea and vomiting. Exam: 18:58 Head/Face: Normocephalic, atraumatic. Eyes: Pupils equal round and reactive to light, snw extra-ocular motions intact. Lids and lashes normal. Conjunctiva and sclera are non-icteric and not injected. Cornea within normal limits. Periorbital areas with no swelling, redness, or edema. ENT: Nares patent. No nasal discharge, no septal abnormalities noted. Tympanic membranes are normal and external auditory canals are clear. Oropharynx with no redness, swelling, or masses, exudates, or evidence of obstruction, uvula midline. Mucous membranes moist. Neck: Trachea midline, no thyromegaly or masses palpated, and no cervical lymphadenopathy. Supple, full range of motion without nuchal rigidity, or vertebral point tenderness. No Meningismus. Chest/axilla: Normal chest wall appearance and motion. Nontender with no deformity. No lesions are appreciated. 18:58 Abdomen/GI: Soft, right upper quad with mild tenderness, with normal bowel sounds. No distension or tympany. No guarding or rebound. Back: No spinal tenderness. No costovertebral tenderness. Full range of motion. Skin: Warm, dry with normal turgor. Normal color with no rashes, no lesions, and no evidence of cellulitis. MS/ Extremity: Pulses equal, no cyanosis. Neurovascular intact. Full, normal range of motion. Neuro: Awake and alert, GCS 15, oriented to person, place, time, and situation. Cranial nerves II-XII grossly intact. Motor strength 5/5 in all extremities. Sensory grossly intact. Cerebellar exam normal. Normal gait. Psych: Awake, alert, with orientation to person, place and time. Behavior, mood, and affect are within normal limits. 18:58 Constitutional: The patient appears alert, awake, uncomfortable. 18:58 Cardiovascular: Rate: tachycardic, Rhythm: regular. 19:03 Respiratory: Lungs have equal breath sounds bilaterally, clear to auscultation and snw percussion. No rales, rhonchi or wheezes noted. No increased work of breathing, no retractions or nasal flaring. Vital Signs: 18:39 BP 130 / 69; Pulse 104; Resp 22; Temp 103(O); Pulse Ox 97% on R/A; Weight 95.25 kg; ss Height 5 ft. 4 in. (162.56 cm); 19:45 BP 114 / 80; Pulse 108; Resp 18; Pulse Ox 97% on R/A; eh3 20:44 BP 105 / 54; Pulse 104; Resp 20; Temp 100.7(O); Pulse Ox 95% on R/A; ll3 21:45 BP 130 / 58; Pulse 98; Resp 20; Pulse Ox 97% on 2 lpm NC; ll3 21:58 Temp 99.9(O); ll3 18:39 Body Mass Index 36.05 (95.25 kg, 162.56 cm) ss MDM: 18:47 Patient medically screened. snw 19:05 Data reviewed: vital signs, nurses notes. Data interpreted: Pulse oximetry: on room air snw is 97 %. Interpretation: normal. Counseling: I had a detailed discussion with the patient and/or guardian regarding: the historical points, exam findings, and any diagnostic results supporting the discharge/admit diagnosis, lab results, radiology results. 22:30 Differential diagnosis: pancreatitis, pneumonia, flu, covid, pyelo. Response to snw treatment: the patient's symptoms have markedly improved after treatment. Physician consultation: Gisselle Jimenez PA-C was called at 22:31, was contacted at 22:31, regarding admission, would like admission per Dr. Arnol Gillette. 22:38 Post IV fluid administration reassessment for Sepsis: Client prescribed 30 mL/kg IVF. snw Focused Assessment performed: April 17, 2022 at 22:40 Heart: Tachycardia noted. Capillary refill examination performed. Capillary refill noted to be brisk. Skin examination performed. Skin noted to have normal turgor. Neuro: Neurological examination improved from previous exam. Respiratory: Respiratory exam improved from previous exam. ED course: Sepsis, +source, +fever, tachycardia, Positive lactate 2.1. Now with two systolic bp readings under 100. = severe sepsis, 30ml/kg NS bolus done. . 04/17 18:42 Order name: Blood Culture Adult (2) snw 04/17 18:42 Order name: CBC with Diff; Complete Time: 19:58 snw 04/17 18:42 Order name: CMP; Complete Time: 19:58 snw 04/17 18:42 Order name: Lactate w/ 2H reflex if indic.; Complete Time: 20:04 snw 04/17 18:42 Order name: Protime (+inr); Complete Time: 19:58 snw 04/17 18:42 Order name: Ptt, Activated; Complete Time: 19:58 snw 04/17 18:42 Order name: Urine Culture snw 04/17 18:42 Order name: Urine Microscopic Only; Complete Time: 20:29 snw 04/17 18:42 Order name: Chest Single View XRAY; Complete Time: 20:41 snw 04/17 18:42 Order name: COVID-19/FLU A+B/RSV; Complete Time: 20:22 snw 04/17 20:20 Order name: Urine Dipstick-Ancillary; Complete Time: 20:22 EDWV 04/17 21:18 Order name: CT Abd/Pelvis - IV Contrast Only; Complete Time: 22:27 snw 04/17 22:00 Order name: CBC with Diff; Complete Time: 22:23 snw 04/17 22:41 Order name: Lactate Sepsis 2 HR Follow-up EDWV 04/17 18:42 Order name: EKG; Complete Time: 18:43 snw 04/17 18:42 Order name: Accucheck; Complete Time: 20:09 snw 04/17 18:42 Order name: Cardiac monitoring; Complete Time: 20:09 snw 04/17 18:42 Order name: EKG - Nurse/Tech; Complete Time: 20:09 snw 04/17 18:42 Order name: IV Saline Lock - Large Bore; Complete Time: 20:09 snw 04/17 18:42 Order name: Labs collected and sent; Complete Time: 20:08 snw 04/17 18:42 Order name: O2 Per Protocol; Complete Time: 20:08 snw 04/17 23:12 Order name: Clear Liquid, Advance as Tolerated EDWV 04/17 18:42 Order name: O2 Sat Monitoring; Complete Time: 20:08 snw 04/17 18:42 Order name: Vital Signs; Complete Time: 18:49 snw 04/17 20:18 Order name: Recheck VS: including temp; Complete Time: 20:46 snw EC:31 Rate is 105 beats/min. Rhythm is regular. QRS [place] is Normal. Clinical impression: NSR snw w/ Non-specific ST/T Changes and Sinus tachycardia. Administered Medications: 19:35 Drug: Ketorolac 15 mg Route: IVP; Site: right upper arm; eh3 19:35 Drug: NS 0.9% 1000 ml Route: IV; Rate: 125 ml/hr; Site: right upper arm; eh3 20:07 Drug: NS 0.9% 1000 ml Route: IV; Rate: 1 bolus; Site: right antecubital; ll3 20:07 Drug: Motrin (ibuprofen) 600 mg Route: PO; ll3 21:58 Follow up: Temp 99.9 Oral; Response: No adverse reaction; Temperature is decreased ll3 22:40 Drug: Rocephin (cefTRIAXone) 1 grams Route: IV; Rate: calculated rate; Site: right ll3 antecubital; 22:43 Drug: Aspirin 81 mg Route: PO; ll3 22:44 Drug: Zithromax (azithromycin) 500 mg Route: IVPB; Infused Over: 1 hrs; Site: right ll3 antecubital; 22:51 Drug: NS 0.9% 1000 ml Route: IV; Rate: 1 bolus; Site: left antecubital; ll3 Disposition Summary: 04/17/22 22:29 Hospitalization Ordered Hospitalization Status: Inpatient Admission snw Location: Telemetry/MedSurg (Inpatient) snw Condition: Stable snw Problem: new snw Symptoms: are unchanged snw Bed/Room Type: Standard snw Provider: Arnol Gillette(04/17/22 22:32) snw [facility]: [facility](04/17/22 22:59) mw Diagnosis - Pneumonia, unspecified organism snw - Severe sepsis without septic shock snw Forms: - Medication Reconciliation Form snw - SBAR form snw Addendum: 04/23/2022 11:30 Co-signature as Attending Physician, Wili Camacho MD. r n Signatures: Dispatcher [employer] EDCarola De La Rosa RN RN mw Bonnie Guadarrama, HISTOLOGIC AIDE-C HISTOLOGIC AIDE-Csnw Wili Camacho MD MD rn Loubet, Lynsea, RN RN ll3 Latasha Jones RN RN eh3 Corrections: (The following items were deleted from the chart) 04/17 19:03 18:58 Respiratory: Exam negative for snw snw 22:32 22:29 TonyGisselle snw snw 22:59 22:29 snw mw
--- NOTE | 2022-04-17 22:30 | ER ---
Nurse's Notes [facility] Name: Samira Freeman Age: 47 yrs Sex: Female : 1975 Arrival Date: 04/17/2022 Time: 18:38 Bed 18 Private MD: Diagnosis: Pneumonia, unspecified organism;Severe sepsis without septic shock Presentation: 04/17 18:39 Chief complaint: EMS states: toned out for n/v fever since this morning. Vomit this ss morning was black with chunks, pt states she did not eat anything black/brown yesterday. Current vomit is clear bile. 18:43 Coronavirus screen: Vaccine status: Patient reports being unvaccinated. Ebola Screen: [facility] No symptoms or risks identified at this time. Initial Sepsis Screen: Does the patient meet any 2 criteria? RR > 20 per min. Temp <36.0*C (96.8*F)) or > 38.3*C (100.9*F). HR > 90 bpm. Yes Does the patient have a suspected source of infection? Yes: Acute abdominal pain. Risk Assessment: Do you want to hurt yourself or someone else? Patient reports no desire to harm self or others. Onset of symptoms was April 17, 2022. 18:43 Method Of Ar[place]: [place] [id number] 18:43 Acuity: GALINA 3 eh3 Triage Assessment: 18:45 General: Appears in no apparent distress. uncomfortable, Behavior is calm, cooperative, eh3 appropriate for age. Pain: Complains of pain in abdomen. EENT: No signs and/or symptoms were reported regarding the EENT system. Neuro: Level of Consciousness is awake, alert, obeys commands, Oriented to person, place, time, situation. Cardiovascular: Capillary refill < 3 seconds Patient's skin is warm and dry. Respiratory: Airway is patent Respiratory effort is even, unlabored, Respiratory pattern is regular, symmetrical. GI: Abdomen is round non-distended, Reports nausea, vomiting. : No signs and/or symptoms were reported regarding the genitourinary system. Derm: No signs and/or symptoms reported regarding the dermatologic system. Musculoskeletal: No signs and/or symptoms reported regarding the musculoskeletal system. Circulation, motion, and sensation intact. Range of motion: intact in all extremities. 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 - Social history:: Smoking status: Reported history of juuling and/or vaping. Patient/guardian denies using alcohol. Screenin:[facility] ED Fall Risk Assessment (Adult) History of falling in the last 3 months, eh3 including since admission No falls in past 3 months (0 pts) Confusion or Disorientation No (0 pts) Intoxicated or Sedated No (0 pts) Impaired Gait No (0 pts) Mobility Assist Device Used No (0 pt) Altered Elimination Yes (1 pt) Score/Fall Risk Level 0 - 2 = Low Risk. Abuse screen: Denies threats or abuse. Denies injuries from another. Nutritional screening: No deficits noted. Tuberculosis screening: No symptoms or risk factors identified. Assessment: 18:47 Reassessment: No changes from previously documented assessment. See triage assessment. eh3 GI: Abdomen is round non-distended, Reports intolerance of fluids, intolerance of food, nausea, vomiting. 19:45 Reassessment: Patient appears in no apparent distress at this time. Patient and/or 3 family updated on plan of care and expected duration. Pain level reassessed. Patient is alert, oriented x 3, equal unlabored respirations, skin warm/dry/pink. 22:28 Reassessment: Patient and/or family updated on plan of care and expected duration. Pain ll3 level reassessed. Patient is alert, oriented x 3, equal unlabored respirations, skin warm/dry/pink. Vital Signs: 18:39 BP 130 / 69; Pulse 104; Resp 22; Temp 103(O); Pulse Ox 97% on R/A; Weight 95.25 kg; ss Height 5 ft. 4 in. (162.56 cm); 19:45 BP 114 / 80; Pulse 108; Resp 18; Pulse Ox 97% on R/A; eh3 20:44 BP 105 / 54; Pulse 104; Resp 20; Temp 100.7(O); Pulse Ox 95% on R/A; ll3 21:45 BP 130 / 58; Pulse 98; Resp 20; Pulse Ox 97% on 2 lpm NC; ll3 21:58 Temp 99.9(O); ll3 18:39 Body Mass Index 36.05 (95.25 kg, 162.56 cm) ED Course: 18:38 Patient arrived in ED. ss 18:41 Bonnie Guadarrama FNP-C [facility]. snw 18:42 Wili Camacho MD is Attending Physician. snw 18:43 Latasha Jones RN is Primary Nurse. eh3 18:44 Triage completed. eh3 18:45 Arm band placed on. eh3 18:47 Patient has correct armband on for positive identification. Bed in low position. Call eh3 light in reach. Side rails up X2. Client placed on continuous cardiac and pulse oximetry monitoring. NIBP monitoring applied. Door closed. Noise minimized. 19:10 Primary Nurse role handed off by Latasha Jones, NIKIA mw2 19:30 Inserted saline lock: 20 gauge in right upper arm, using aseptic technique. Blood eh3 collected. 20:31 Chest Single View XRAY In Process Unspecified. EDMS 22:11 CT Abd/Pelvis - IV Contrast Only In Process Unspecified. EDMS 22:29 Gisselle Jimenez PA-C is Hospitalizing Provider. snw 22:32 Hospitalizing Provider role handed off by Gisselle Jimeenz PA-C snw 22:32 Arnol Gillette is Hospitalizing Provider. snw 23:00 Inserted saline lock: 22 gauge in left antecubital area, using aseptic technique. IV ll3 discontinued, intact, bleeding controlled, No redness/swelling at site. Pressure dressing applied. 23:23 No provider procedures requiring assistance completed. ll3 Administered Medications: 19:35 Drug: Ketorolac 15 mg Route: IVP; Site: right upper arm; eh3 19:35 Drug: NS 0.9% 1000 ml Route: IV; Rate: 125 ml/hr; Site: right upper arm; eh3 20:07 Drug: NS 0.9% 1000 ml Route: IV; Rate: 1 bolus; Site: right antecubital; ll3 20:07 Drug: Motrin (ibuprofen) 600 mg Route: PO; ll3 21:58 Follow up: Temp 99.9 Oral; Response: No adverse reaction; Temperature is decreased ll3 22:40 Drug: Rocephin (cefTRIAXone) 1 grams Route: IV; Rate: calculated rate; Site: right ll3 antecubital; 22:43 Drug: Aspirin 81 mg Route: PO; ll3 22:44 Drug: Zithromax (azithromycin) 500 mg Route: IVPB; Infused Over: 1 hrs; Site: right ll3 antecubital; 22:51 Drug: NS 0.9% 1000 ml Route: IV; Rate: 1 bolus; Site: left antecubital; ll3 Medication: 23:23 VIS not applicable for this client. ll3 Outcome: 22:29 Decision to Hospitalize by Provider. snw 23:39 Patient left the ED. kavya 23:49 Admitted to Med/surg accompanied by nurse, via wheelchair, room 206, with chart, Report ll3 called to NIKIA Haley 23:49 Condition: stable 23:49 Discharge instructions given to patient, Instructed on the need for admit, Demonstrated understanding of instructions. Signatures: Dispatcher [employer] EDMS Bonnie Guadarrama, MACHINE OPERATOR HOP PICKER-C MACHINE OPERATOR HOP PICKER-Csnw Merced Sims, RN RN bb Precious Portillo, NIKIA RN ss Ino Jimenez mw2 Carter Yousif RN RN ll3 Latasha Jones, RN RN 3
[2022-04-17] MEDS ORDERED: AZITHROMYCIN 500 MG INJ IVPB ONE (22:35)
[2022-04-17] MEDS ORDERED: NA CHLORIDE 0.9% 250 ML ONE (22:35)
[2022-04-17] MEDS ORDERED: CEFTRIAXONE 1000 MG/VIAL ONE (22:35)
[2022-04-17] MEDS ORDERED: ASPIRIN 81 MG CHEWABLE TABLET ONE (22:36)
--- NOTE | 2022-04-17 22:59 | P.HP ---
Certification for Inpatient Patient admitted to: Inpatient With expected LOS: <2 Midnights Patient will require the following post-hospital care: None Practitioner: I am a practitioner with admitting privileges, knowledge of patient current condition, hospital course, and medical plan of care. Services: Services provided to patient in accordance with Admission requirements found in Title 42 Section 412.3 of the Code of Federal Regulations Patient History Date of Service: 04/18/22 Reason for admission: Pneumonia History of Present Illness: Patient is a 47-year-old female with past medical history of anxiety who presents to the emergency department with complaints of nausea, vomiting, and fever that been this morning. She was noted to be febrile at 103F, tachycardic, tachypneic upon arrival to the emergency department. Her labs are significant for WBC 15.8 with left shift, lactate of 2.1. Urine, COVID, and flu negative. After 2 L of fluid, her lactate came down to 1.2 but her white count increased to 18. Chest x-ray negative. CT abdomen pelvis showed "Minimal ground-glass opacities are present in each lower lung field. This could be atelectasis or small infiltrate or mild alveolar edema." She denies any dyspnea/shortness of breath. Saturating appropriately on room air. She received Toradol, Motrin, Rocephin, azithromycin, aspirin, and 3 L total of fluid in the emergency department. Her temp has come down to 99.9F. Patient is admitted for further management. Allergies morphine Allergy (Verified 04/17/22 23:49) Itching Home medications list reviewed: Yes Home Medications: hydrOXYzine HCL [Atarax] 25 mg PO DAILY 04/18/22 - Past Medical/Surgical History Diabetic: No -: Anxiety -: Nephrolithiasis -: Hysterectomy -: Cholecystectomy Psychosocial/ Personal History: Patient is . - Family History Father -: Cancer Mother -: Diabetes, Stroke - Social History Smoking Status: Never smoker (vapes) Alcohol use: No CD- Drugs: No Caffeine use: Yes Place of Residence: Home Review of Systems General: Fever, Chills, Malaise Gastrointestinal: Nausea, Vomiting Physical Examination - Vital Signs Temperature: 99.9 F Blood Pressure: 130/58 Pulse: 98 Respirations: 20 Pulse Ox (%): 97 - Physical Exam General: Alert, In no apparent distress HEENT: Atraumatic, PERRLA, EOMI, Sclerae nonicteric Neck: Supple, 2+ carotid pulse no bruit, No LAD, Without JVD or thyroid abnormality Respiratory: Clear to auscultation bilaterally, Normal air movement Cardiovascular: Regular rate/rhythm, Normal S1 S2 Gastrointestinal: Normal bowel sounds, No tenderness Musculoskeletal: No tenderness Integumentary: No rashes Neurological: Normal speech, Normal strength at 5/5 x4 extr, Normal tone, Normal affect - Studies Laboratory Data (last 24 hrs) 04/17/22 22:07: WBC 18.60 H, Hgb 12.5 D, Hct 36.7, Plt Count 353 04/17/22 19:27: PT 11.5, INR 1.05, APTT 30.3 04/17/22 19:27: Sodium 141, Potassium 3.8, BUN 15, Creatinine 0.90, Glucose 151 H, Total Bilirubin 0.5, AST 11 L, ALT 27, Alkaline Phosphatase 98 04/17/22 19:27: WBC 15.80 H, Hgb 13.6, Hct 38.6, Plt Count 388 Assessment and Plan - Problems (Diagnosis) (1) Pneumonia Current Visit: Yes Status: Acute Qualifiers: Pneumonia type: due to unspecified organism Laterality: bilateral Lung location: lower lobe of lung Qualified Code(s): J18.9 - Pneumonia, unspecified organism (2) Sepsis Current Visit: Yes Status: Acute Qualifiers: Sepsis type: sepsis due to unspecified organism Sepsis acute organ dysfunction status: with acute organ dysfunction Severe sepsis acute organ dysfunction type: unspecified Severe sepsis shock status: without septic shock Qualified Code(s): A41.9 - Sepsis, unspecified organism; R65.20 - Severe sepsis without septic shock (3) Anxiety Current Visit: Yes Status: Chronic - Plan Patient is admitted for further management of severe sepsis secondary to pneumonia. Continue supportive measures with breathing treatments, antitussives, decongestants, IV hydration. Patient is not requiring supplemental O2 at this time. Solu-Medrol, incentive spirometry, antibiotiocs for pneumonia. Blood cultures obtained. Pain medications and antiemetics as needed. Clear liquid diet, advance as tolerated as patient has been vomiting. Symptoms just began today so it is possible that she is covid/flu positive and is too early to be detected. Monitor and replete electrolytes per protocol. Reconcile and continue home medications. Lovenox for VTE prophylaxis. Full code. Discharge Plan: Home Plan to discharge in: 48 Hours - Advance Directives Does patient have a Living Will: No Does patient have a Durable POA for Healthcare: No - Code Status/Comfort Care Code Status Assessed: Yes Code Status: Full Code Physician Review: Patient Assessed, Agree with Above Assessment and Plan Critical Care: No Time Spent Managing Pts Care (In Minutes): 50
[2022-04-18] MEDS ORDERED: BENZONATATE 100 MG CAP PO PRN (00:03)
[2022-04-18] MEDS ORDERED: ONDANSETRON 4 MG/2 ML VIAL IV PRN (00:03)
[2022-04-18] MEDS ORDERED: ALBUTEROL 2.5 MG/3 ML NEB SOL NEB PRN (00:03)
[2022-04-18] MEDS: NA CHLORIDE 0.9% 1,000 ML IV SCH ×3 (00:03→16:25)
[2022-04-18] MEDS ORDERED: ACETAMINOPHEN 500 MG TAB PO PRN (00:03)
[2022-04-18] MEDS: HYDROCODONE/APAP 5/325 MG TAB PO PRN (00:19)
[2022-04-18] MEDS: METHYLPREDNISOLONE 40 MG INJ IV SCH ×3 (00:20→16:25)
[2022-04-18 00:56] LABS: Specific Gravity > 1.030 (1.005-1.030); Urine Bacteria None Seen /HPF (<20); Urine Bilirubin NEGATIVE (Negative); Urine Blood Negative (Negative); Urine Clarity Clear (Clear); Urine Color Light-Yellow (Yellow); Urine Glucose NEGATIVE (Negative); Urine Protein TRACE (Negative); Urine RBC <5 /HPF (None Seen); Urine Urobilinogen Normal (Normal); Urine pH 8.5 (5.0-7.0)
[2022-04-18 01:00] VITALS: BMI 38.5
[2022-04-18 03:49] LABS: Absolute Lymphocytes (CBC) 1.2 K/uL (0.7-4.9); Hematocrit 35.3 % (36.0-45.0); Lymphocytes % 6.1 % (15.3-44.8); MCV 86.4 fL (80-100); MPV 8.1 fL (7.6-11.3); RBC Red Blood Cell Count 4.08 M/uL (3.86-4.86)
[2022-04-18 04:13] LABS: Magnesium 1.8 mg/dL (1.6-2.4); Phosphorus 2.3 mg/dL (2.5-4.9); Potassium 4.1 mmol/L (3.5-5.1); Thyroid Stimulating Hormone 0.491 uIU/mL (0.358-3.740)
[2022-04-18] MEDS: FAMOTIDINE 20 MG/2 ML VIAL IV PRN ×2 (04:19→16:24)
[2022-04-18] MEDS ORDERED: MAGNESIUM SULFATE 1 gm IVPB 1 GM/100 ML BAG IV ONE (06:00)
[2022-04-18] MEDS: POTASS/SODIUM PHOSPHATE 1 PKT POWD.PACK PO SCH ×3 (06:06→08:42)
[2022-04-18] MEDS: CEFTRIAXONE 1,000 MG in NA CHLORIDE 0.9% 50 ML IVPB SCH (08:41)
[2022-04-18] MEDS: ENOXAPARIN 40 MG/0.4 ML SQ SCH (08:41)
[2022-04-18] MEDS: hydrOXYzine HCL 25 MG TAB PO SCH (08:42)
[2022-04-18] MEDS: ZINC SULFATE 220 MG CAP PO SCH (08:42)
[2022-04-18] MEDS: ASCORBIC ACID 500 MG TABLET PO SCH (08:42)
[2022-04-18] MEDS: AZITHROMYCIN IV 500 MG in NA CHLORIDE 0.9% 250 ML IVPB SCH (08:43)
[2022-04-18] MEDS ORDERED: INFLUENZA VACCINE (for 6+ mo) 0.5 ML DOSE IMVAC ONE (13:00)
--- NOTE | 2022-04-18 13:32 | P.PN ---
Subjective Date of Service: 04/18/22 Chief Complaint: Pneumonia Patient reports significant fatigue otherwise states she feels better than yesterday. She also reports nausea. No vomiting today. Physical Examination - Vital Signs Temperature: 97.4 F Blood Pressure: 117/67 Pulse: 82 Respirations: 16 Pulse Ox (%): 100 - Studies Laboratory Data (last 24 hrs) 04/17/22 22:07: WBC 18.60 H, Hgb 12.5 D, Hct 36.7, Plt Count 353 04/17/22 19:27: PT 11.5, INR 1.05, APTT 30.3 04/17/22 19:27: Sodium 141, Potassium 3.8, BUN 15, Creatinine 0.90, Glucose 151 H, Total Bilirubin 0.5, AST 11 L, ALT 27, Alkaline Phosphatase 98 04/17/22 19:27: WBC 15.80 H, Hgb 13.6, Hct 38.6, Plt Count 388 Assessment And Plan - Current Problems (Diagnosis) (1) Pneumonia Current Visit: Yes Status: Acute Qualifiers: Pneumonia type: due to unspecified organism Laterality: bilateral Lung location: lower lobe of lung Qualified Code(s): J18.9 - Pneumonia, unspecified organism (2) Sepsis Current Visit: Yes Status: Acute Qualifiers: Sepsis type: sepsis due to unspecified organism Sepsis acute organ dysfunction status: with acute organ dysfunction Severe sepsis acute organ dysfunction type: unspecified Severe sepsis shock status: without septic shock Qualified Code(s): A41.9 - Sepsis, unspecified organism; R65.20 - Severe sepsis without septic shock (3) COPD exacerbation Current Visit: Yes Status: Acute - Plan Physical Exam General: Alert, In no apparent distress Neck: Supple, no elevated JVD. Respiratory: Clear to auscultation bilaterally, Normal air movement Cardiovascular: Regular rate/rhythm, Normal S1 S2 Gastrointestinal: Normal bowel sounds, No tenderness Musculoskeletal: No tenderness Integumentary: No rashes Neurological: Normal speech, Normal strength at 5/5 x4 extr, Normal tone, Normal affect. Plan: Patient with significant leukocytosis. She is also symptomatic with fatigue. Fever on presentation but no more fever since admission. Continue treatment for pneumonia with broad-spectrum antibiotic. Patient symptoms could be also due to viral pneumonia. Continue supportive measures-antiemetics, antipyretics as needed. Follow cultures Continue to monitor CBC. Continue IV steroid and bronchodilators. Physician Review: Patient Assessed, Agree with Above Assessment and Plan
--- NOTE | 2022-04-18 19:16 | P.DS ---
Admission Date: 04/17/22 Discharge Date: 04/18/22 Disposition: ROUTINE DISCHARGE Discharge Condition: FAIR Reason for Admission: Pneumonia - Problems (1) Pneumonia Current Visit: Yes Status: Acute Qualifiers: Pneumonia type: due to unspecified organism Laterality: bilateral Lung location: lower lobe of lung Qualified Code(s): J18.9 - Pneumonia, unspecified organism (2) Sepsis Current Visit: Yes Status: Acute Qualifiers: Sepsis type: sepsis due to unspecified organism Sepsis acute organ dysfunction status: with acute organ dysfunction Severe sepsis acute organ dysfunction type: unspecified Severe sepsis shock status: without septic shock Qualified Code(s): A41.9 - Sepsis, unspecified organism; R65.20 - Severe sepsis without septic shock (3) COPD exacerbation Current Visit: Yes Status: Acute Brief History of Present Illness: Patient is a 47-year-old female with past medical history of anxiety who presents to the emergency department with complaints of nausea, vomiting, and fever that been this morning. She was noted to be febrile at 103F, tachycardic, tachypneic upon arrival to the emergency department. Her labs are significant for WBC 15.8 with left shift, lactate of 2.1. Urine, COVID, and flu negative. After 2 L of fluid, her lactate came down to 1.2 but her white count increased to 18. Chest x-ray negative. CT abdomen pelvis showed "Minimal ground-glass opacities are present in each lower lung field. She was saturated appropriately on room air. She received Toradol, Motrin, Rocephin, azithromycin, aspirin, and 3 L total of fluid in the emergency department. Her temp has come down to 99.9F. Patient was admitted for further management. Hospital Course: Patient admitted to the medical floor and treated with antibiotics for possible bacterial pneumonia significant leukocytosis. She was reporting significant fatigue. Noted patient tested negative for both influenza and COVID-19. Chest x-ray was clear, UA did not suggest UTI. Viral pneumonia or upper respiratory infection suspected. Continue supportive measures-antiemetics, antipyretics as needed. Patient also treated with IV steroid and bronchodilators for acute bronchitis. Patient clinically improved. Vital Signs/Physical Exam: Temp Pulse Resp BP Pulse Ox 97.5 F 88 16 137/74 100 04/18/22 16:00 04/18/22 16:00 04/18/22 16:00 04/18/22 16:00 04/18/22 16:00 General: Alert, In no apparent distress, Oriented x3 HEENT: Mucous membr. moist/pink Neck: JVD not distended Respiratory: Clear to auscultation bilaterally, Normal air movement Cardiovascular: Regular rate/rhythm, Normal S1 S2 Gastrointestinal: Soft and benign, Non-distended Musculoskeletal: No swelling Neurological: Normal strength at 5/5 x4 extr Laboratory Data at Discharge: WBC 19.40 K/uL (4.3-10.9) H 04/18/22 03:01 Hgb 12.2 g/dL (12.0-15.0) 04/18/22 03:01 Hct 35.3 % (36.0-45.0) L 04/18/22 03:01 Plt Count 344 K/uL (152-406) 04/18/22 03:01 PT 11.5 SECONDS (9.5-12.5) 04/17/22 19:27 INR 1.05 04/17/22 19:27 APTT 30.3 SECONDS (24.3-36.9) 04/17/22 19:27 Sodium 143 mmol/L (136-145) 04/18/22 03:01 Potassium 4.1 mmol/L (3.5-5.1) 04/18/22 03:01 BUN 12 mg/dL (7-18) 04/18/22 03:01 Creatinine 0.81 mg/dL (0.55-1.02) 04/18/22 03:01 Glucose 151 mg/dL (74-106) H 04/18/22 03:01 Phosphorus Cancelled 04/18/22 Unknown Magnesium 1.8 mg/dL (1.6-2.4) 04/18/22 03:01 Total Bilirubin 0.5 mg/dL (0.2-1.0) 04/17/22 19:27 AST 11 U/L (15-37) L 04/17/22 19:27 ALT 27 U/L (13-56) 04/17/22 19:27 Alkaline Phosphatase 98 U/L (45-117) 04/17/22 19:27 Triglycerides 126 mg/dL (<150) 04/18/22 03:01 Cholesterol 182 mg/dL (<200) 04/18/22 03:01 HDL Cholesterol 48 mg/dL (40-60) 04/18/22 03:01 Cholesterol/HDL Ratio 3.79 04/18/22 03:01 Home Medications: Ascorbic Acid [Vitamin C*] 1,000 mg PO BID #60 tab 04/18/22 Benzonatate [Tessalon Perle*] 100 mg PO TID PRN #30 cap 04/18/22 Zinc Sulfate [Zinc Sulfate*] 220 mg PO DAILY #30 cap 04/18/22 hydrOXYzine HCL [Atarax*] 25 mg PO DAILY 04/18/22 New Medications: Benzonatate [Tessalon Perle*] 100 mg PO TID PRN #30 cap PRN Reason: Cough Ascorbic Acid [Vitamin C*] 1,000 mg PO BID #60 tab Zinc Sulfate [Zinc Sulfate*] 220 mg PO DAILY #30 cap Diet: AHA Activity: Ad garret Followup: NONE,NONE [Primary Care Provider] -
[2022-04-19] MEDS: METHYLPREDNISOLONE 40 MG INJ IV SCH ×2 (00:26→08:47)
[2022-04-19] MEDS ORDERED: ALPRAZOLAM 0.5 MG TABLET PO ONE (01:41)
[2022-04-19] MEDS: NA CHLORIDE 0.9% 1,000 ML IV SCH (01:52)
[2022-04-19 03:22] LABS: Absolute Lymphocytes (CBC) 1.1 K/uL (0.7-4.9); Hematocrit 35.1 % (36.0-45.0); Lymphocytes % 5.5 % (15.3-44.8); MPV 7.9 fL (7.6-11.3); RBC Red Blood Cell Count 3.98 M/uL (3.86-4.86)
[2022-04-19 03:32] LABS: Phosphorus 1.7 mg/dL (2.5-4.9); Potassium 4.1 mmol/L (3.5-5.1)
[2022-04-19 04:26] LABS: Blood Morphology Comment NOT SEEN (NOT SEEN); Platelet Estimate ADEQ
[2022-04-19] MEDS: POTASS/SODIUM PHOSPHATE 1 PKT POWD.PACK PO SCH ×3 (06:05→08:46)
[2022-04-19] MEDS ORDERED: NA CHLORIDE 0.9% 0 ML ONE (07:41)
[2022-04-19] MEDS ORDERED: NA CHLORIDE 0.9% 50 ML ONE (07:51)
[2022-04-19] MEDS: ENOXAPARIN 40 MG/0.4 ML SQ SCH (08:45)
[2022-04-19] MEDS: hydrOXYzine HCL 25 MG TAB PO SCH (08:46)
[2022-04-19] MEDS: ZINC SULFATE 220 MG CAP PO SCH (08:47)
[2022-04-19] MEDS: AZITHROMYCIN IV 500 MG in NA CHLORIDE 0.9% 250 ML IVPB SCH (08:47)
[2022-04-19] MEDS: CEFTRIAXONE 1,000 MG in NA CHLORIDE 0.9% 50 ML IVPB SCH (08:47)
[2022-04-19] MEDS ORDERED: FAMOTIDINE 20 MG TAB PO PRN (09:19)
[2022-04-19] MEDS: ASCORBIC ACID 500 MG TABLET PO SCH (10:19)
[2022-04-19] MEDS: DIPHENHYDRAMINE 25 MG TAB/CAP PO PRN ×2 (13:26→22:04)
--- NOTE | 2022-04-19 14:34 | EKG ---
Test Date: 2022-04-17 Test Time: 19:27:19 Geographic Information System Surveyor: ANDREY MEASUREMENT RESULTS: Intervals: Rate: 105 ID: [id number] QRSD: 68 QT: 378 QTc: 499 [place]: P: 46 ID: [id number] QRS: 5 T: 0 INTERPRETIVE STATEMENTS: Sinus tachycardia Low voltage QRS Cannot rule out Anterior infarct, age undetermined Abnormal ECG No previous ECG available for comparison Electronically Signed On 04-19-22 14:31:57 WINDOWS PHONE DEVELOPER by Lexx Pineda
--- NOTE | 2022-04-19 15:38 | P.PN ---
Date of Service: 04/19/22 Subjective: Improving, afebrile, breathing more comfortably, no worsening of symptoms Continues with leukocytosis of 19,000 tolerating PO ROS: Full ROS as noted above, otherwise negative Physical exam GEN: Alert, oriented, NAD HEENT: Normal conjunctiva, sclera anicteric CV: Regular rate and rhythm, trace b/l pedal edema Pulm: Nonlabored respirations on room air, mild cough ABD: Soft, nontender, nondistended Neuro: Normal speech, normal affect Problem List Pneumonia, suspect viral etiology Sepsis secondary to pneumonia Leukocytosis significant leukocytosis. suspect remains elevated secondary to steroid use madeline-escalate steroid dose 1/3, monitor overnight febrile on presentation, now remains afebrile overall feels she is improving cultures negative wean to PO steroid dc IV fluids Continue supportive measures-antiemetics, antipyretics as needed. possible allergic reaction - pt itching few hours after receiving antibiotics, vitals stable Ciode: full Dispo: anticipate dc home tomorrow pending further improvement Time Spent Managing Pts Care (In Minutes): 35
[2022-04-19] MEDS ORDERED: ALBUTEROL 2.5 MG/3 ML NEB SOL NEB PRN (16:00)
[2022-04-20] MEDS: HYDROCODONE/APAP 5/325 MG TAB PO PRN (04:56)
[2022-04-20 06:11] LABS: Absolute Lymphocytes (CBC) 5.6 K/uL (0.7-4.9); Hematocrit 35.5 % (36.0-45.0); Lymphocytes % 35.4 % (15.3-44.8); MPV 7.9 fL (7.6-11.3); RBC Red Blood Cell Count 4.09 M/uL (3.86-4.86)
[2022-04-20 06:37] LABS: Phosphorus 2.9 mg/dL (2.5-4.9)
[2022-04-20] MEDS: ASCORBIC ACID 500 MG TABLET PO SCH (08:40)
[2022-04-20] MEDS: hydrOXYzine HCL 25 MG TAB PO SCH (08:40)
[2022-04-20] MEDS: ZINC SULFATE 220 MG CAP PO SCH (08:40)
[2022-04-20] MEDS: DIPHENHYDRAMINE 25 MG TAB/CAP PO PRN (08:40)
[2022-04-20] MEDS: ENOXAPARIN 40 MG/0.4 ML SQ SCH (08:41)
--- NOTE | 2022-04-20 09:44 | RAD REPORT ---
EXAM DESCRIPTION: US - Extremity Venous Uni Ltd - 04/20/2022 6:18 am CLINICAL HISTORY: Left arm pain and swelling COMPARISON: None. TECHNIQUE: Real-time sonographic evaluation of the left upper extremity deep venous systems was perf ormed. FINDINGS: Normal compressibility, flow augmentation, phasic flow and spontaneous flow are identified in the left upper extremity deep venous system. No intraluminal filling defects seen. Internal jugul ar and subclavian veins are normal as well. Superficial left cephalic vein was not well visualized. Final report was delayed due to malfunctioning roto gravure press operator system. IMPRESSION: No DVT in the left upper extremity.
[2022-04-20 09:50] VITALS: O2SAT 100
[2022-04-20 12:16] VITALS: BP 137/68; TEMP 97.7
--- NOTE | 2022-04-21 23:06 | P.DS ---
Admission Date: 04/17/22 Discharge Date: 04/20/22 Disposition: ROUTINE DISCHARGE Discharge Condition: FAIR Reason for Admission: Pneumonia Brief History of Present Illness: 47-year-old female with past medical history of anxiety who presents to the emergency department with complaints of nausea, vomiting, and fever that been this morning. She was noted to be febrile at 103F, tachycardic, tachypneic upon arrival to the emergency department. Her labs are significant for WBC 15.8 with left shift, lactate of 2.1. Urine, COVID, and flu negative. After 2 L of fluid, her lactate came down to 1.2 but her white count increased to 18. Chest x-ray negative. CT abdomen pelvis showed "Minimal ground-glass opacities are present in each lower lung field. She was saturated appropriately on room air. She received Toradol, Motrin, Rocephin, azithromycin, aspirin, and 3 L total of fluid in the emergency department. Her temp has come down to 99.9F. Patient was admitted for further management. Hospital Course: Problem List Pneumonia, suspect viral etiology Sepsis secondary to pneumonia Leukocytosis Patient presented with nausea, vomiting, and fever to 103, shortness of breath and significant fatigue. She was negative for flu and COVID-19. Chest x-ray was clear and UA was without pyuria/bacteruria. There was concern for possible viral pneumonia vs bronchitis. She was treated with rocephin, azithromycin, and steroids. She had gradual improvement of her symptoms. On 04/19, she developed some swelling and pain of her left upper extremity, first noticing some symptoms after receiving antibiotics. Venous doppler was negative for DVT of her left arm. She had some improvement. This was felt to be secondary to allergy to one of the antibiotics. She was deemed stable for discharge home with 4 more days of prednisone. No antibiotic needed. Advised elevationg and benadryl for left arm. Follow up: PCP within 1 week. Vital Signs/Physical Exam: Temp Pulse Resp BP Pulse Ox 97.7 F 78 14 137/68 100 04/20/22 12:00 04/20/22 12:00 04/20/22 12:00 04/20/22 12:04/20/22 12:00 Physical exam GEN: Alert, oriented, NAD HEENT: Normal conjunctiva, sclera anicteric CV: Regular rate and rhythm, trace b/l pedal edema Pulm: Nonlabored respirations on room air, mild cough ABD: Soft, nontender, nondistended Neuro: Normal speech, normal affect Laboratory Data at Discharge: WBC 15.90 K/uL (4.3-10.9) H 04/20/22 05:56 Hgb 12.1 g/dL (12.0-15.0) 04/20/22 05:56 Hct 35.5 % (36.0-45.0) L 04/20/22 05:56 Plt Count 387 K/uL (152-406) 04/20/22 05:56 PT 11.5 SECONDS (9.5-12.5) 04/17/22 19:27 INR 1.05 04/17/22 19:27 APTT 30.3 SECONDS (24.3-36.9) 04/17/22 19:27 Sodium 139 mmol/L (136-145) 04/20/22 05:56 Potassium 4.0 mmol/L (3.5-5.1) 04/20/22 05:56 BUN 13 mg/dL (7-18) 04/20/22 05:56 Creatinine 0.79 mg/dL (0.55-1.02) 04/20/22 05:56 Glucose 96 mg/dL (74-106) 04/20/22 05:56 Phosphorus 2.9 mg/dL (2.5-4.9) 04/20/22 05:56 Magnesium 2.0 mg/dL (1.6-2.4) 04/19/22 03:03 Total Bilirubin 0.5 mg/dL (0.2-1.0) 04/17/22 19:27 AST 11 U/L (15-37) L 04/17/22 19:27 ALT 27 U/L (13-56) 04/17/22 19:27 Alkaline Phosphatase 98 U/L (45-117) 04/17/22 19:27 Triglycerides 126 mg/dL (<150) 04/18/22 03:01 Cholesterol 182 mg/dL (<200) 04/18/22 03:01 HDL Cholesterol 48 mg/dL (40-60) 04/18/22 03:01 Cholesterol/HDL Ratio 3.79 04/18/22 03:01 Home Medications: Ascorbic Acid [Vitamin C*] 1,000 mg PO BID #60 tab 04/18/22 Benzonatate [Tessalon Perle*] 100 mg PO TID PRN #30 cap 04/18/22 Zinc Sulfate [Zinc Sulfate*] 220 mg PO DAILY #30 cap 04/18/22 hydrOXYzine HCL [Atarax*] 25 mg PO DAILY 04/18/22 predniSONE [Prednisone*] 20 mg PO DAILY 4 Days #4 tab 04/20/22 New Medications: predniSONE [Prednisone*] 20 mg PO DAILY 4 Days #4 tab Benzonatate [Tessalon Perle*] 100 mg PO TID PRN #30 cap PRN Reason: Cough Ascorbic Acid [Vitamin C*] 1,000 mg PO BID #60 tab Zinc Sulfate [Zinc Sulfate*] 220 mg PO DAILY #30 cap Physician Discharge Instructions: Patient presented with nausea, vomiting, and fever to 103, shortness of breath and significant fatigue. She was negative for flu and COVID-19. Chest x-ray was clear and UA was without pyuria/bacteruria. There was concern for possible viral pneumonia vs bronchitis. She was treated with rocephin, azithromycin, and steroids. She had gradual improvement of her symptoms. On 04/19, she developed some swelling and pain of her left upper extremity, first noticing some symptoms after receiving antibiotics. Venous doppler was negative for DVT of her left arm. She had some improvement. This was felt to be secondary to allergy to one of the antibiotics. She was deemed stable for discharge home with 4 more days of prednisone. No antibiotic needed. Advised elevationg and benadryl for left arm. Follow up: PCP within 1 week. Diet: AHA Activity: Ad garret Followup: NONE,NONE [Primary Care Provider] - 1 Week (Please call to schedule an appointment. ) Time spent managing pt's care (in minutes): 45
== END 2022-04-20 13:44 | disposition home or self-care (01) | DRG 871 ==
LOC: ER 18:25 → 2ND 22:54
PROVIDERS: ADMIT Internal Medicine; ATTEND Hospitalist
DX: A41.9 Sepsis, unspecified organism (principal); J12.9 Viral pneumonia, unspecified; J44.1 Chronic obstructive pulmonary disease with (acute) exacerbation; J44.0 Chronic obstructive pulmonary disease with (acute) lower respiratory infection; F41.9 Anxiety disorder, unspecified; M79.89 Other specified soft tissue disorders; T36.95XA Adverse effect of unspecified systemic antibiotic, initial encounter; R65.20 Severe sepsis without septic shock; Z23 Encounter for immunization; Z41.9 Encounter for procedure for purposes other than remedying health state, unspecified; Z88.5 Allergy status to narcotic agent; Z79.52 Long term (current) use of systemic steroids; Z90.49 Acquired absence of other specified parts of digestive tract; Z90.710 Acquired absence of both cervix and uterus; Z79.899 Other long term (current) drug therapy; Z20.822 Contact with and (suspected) exposure to COVID-19
CPT/HCPCS: 0241U; 36415; 71045; 74177; 80048; 80053; 80061; 81001; 81003; 81015; 83605; 83735; 84100; 84443; 85025; 85610; 85730; 87040; 87086; 87088; 90471; 93005; 93971; 94010; 94640; 94760; 99285; J0456; J1650; J2920; J3475; J7030; J7050; J7613; Q2035; Q9967